=== PATIENT | female | born 1955 | race Caucasian/White ===

== ENCOUNTER 2023-10-23 04:17 | Inpatient (IN) | payer MEDICARE, OTHER, SELFPAY ==
[2023-10-22 22:31] VITALS: BP 108/75
[2023-10-22 22:51] LABS: % Basophils 0.6 % (0-2); % Eosinophils 2.3 % (0-6); % Immature Granulocytes 0.3 % (0-0.5); % Monocytes 8.2 % (1.7-9.3); % Neutrophils 56.6 % (42.2-75.2); Absolute Basophils 0.1 10^3/uL (0-0.2); Absolute Eosinophils 0.3 10^3/uL (0-0.7); Absolute Lymphocytes 3.5 10^3/uL (1.2-3.4); Absolute Monocytes 0.9 10^3/uL (0.1-0.6); Absolute Neutrophils 6.1 10^3/uL (1.4-6.5); Hematocrit 41.8 % (37.0-47.0); Hemoglobin 14.3 g/dL (12.0-16.0); Mean Corp Hgb Conc. 34.2 g/dL (33.0-37.0); Mean Corpuscular Hgb 31.1 pg (27.0-31.0); Mean Corpuscular Volume 90.9 fL (81.0-99.0); Mean Platelet Volume 9.9 fL (7.4-10.4); Nucleated Red Blood Cells % 0 %; Platelet Count 289 10^3/uL (130-400); Red Cell Dist. Width 14.2 % (11.5-14.5); White Blood Cell Count 10.8 10^3/uL (4.8-10.8)
[2023-10-22 23:09] LABS: ALT (SGPT) 24 U/L (0-35); AST (SGOT) 27 U/L (14-36); Albumin 4.6 g/dl (3.5-5.0); Alkaline Phosphatase 85 U/L (38-126); Blood Urea Nitrogen 26 mg/dl (7-17); Calcium 9.2 mg/dl (8.4-10.2); Carbon Dioxide 27 mmol/L (22-30); Chloride 103 mmol/L (98-107); Glucose 154 mg/dl (70-99); Magnesium 1.9 mg/dl (1.6-2.3); Potassium 4.3 mmol/L (3.5-5.1); Sodium 142 mmol/L (135-145); Total Bilirubin 0.8 mg/dl (0.2-1.3); Total Protein 7.4 g/dl (6.3-8.2); eGFR > 60.00
[2023-10-22 23:11] VITALS: BMI 49.4
[2023-10-22 23:12] VITALS: BP 123/100
--- NOTE | 2023-10-22 23:26 | ED.GENMED ---
History of Present Illness
General
Chief Complaint: Heart Rate Problem
Source: patient and spouse
Exam Limitations: none
Time Seen by Provider: 10/22/23 23:04
Nursing documentation reviewed up to this point in time: agreed with
History of Present Illness
History of Present Illness:
This is a 68-year-old woman who resides at home with her . She has history of paroxysmal atrial fibrillation with last episode occurring approximately 3 years ago. Chronically maintained on Eliquis as well as metoprolol tartrate. She had
been prescribed diltiazem 1 year ago but this was discontinued within a few months of starting due to complaints of generalized swelling.
She complains of intermittent palpitations that initially began yesterday. Similar palpitations with previous episodes of A-fib.
Tonight, palpitations recurred or just seemed more prominent/persistent and she used her heart rate monitor which demonstrated A-fib.
She denies chest pain nor dizziness nor lightheadedness. She does note mild dyspnea on exertion which is chronic and unchanged. She denies increased shortness of breath with onset of palpitations yesterday.
She denies alcohol use. She did share a Coke with her lisa, other than this denies caffeine use nor drug use.
No recent fever nor URI. No recent travel.
She follows with wood heel fitter machine, Dr. Schulz but admits that her 3 most recent office visits have been canceled by the wood heel fitter machine office, repeatedly rescheduled with next appointment scheduled for November.
She took her usual dose of metoprolol tonight around 10 PM as well as a dose of Eliquis.
She has been receiving samples of Eliquis from her PCP office and although is prescribed 5 mg twice a day, patient mitts that she has been breaking this in half and taking 2.5 mg twice daily.
Past History
Past History
ED Past Medical History: Arrthythmia (Paroxysmal atrial fibrillation), Cancer (Right breast cancer), Hypercholesterolemia, Hypothyroidism, Psychiatric and Other (vertigo, DJD of knees); Negative CAD
ED Past Surgical History: Gynecological (Right mastectomy) and Other (Partial thyroidectomy)
Social History
Tobacco: Non-smoker
Alcohol: None
Drug: None
Personal:
Living: with family
Employment: Retired
Family History
Family History: Other (Noncontributory)
Phy Exam
Physical Exam
Physical Exam:
GENERAL: 68-year-old obese woman appears her stated age, bright and alert, mildly anxious but easily communicative and otherwise in no acute distress.
EYE: pupils equal and reactive
NECK: Supple, no significant adenopathy.
ENT: o/p clr, mmm.
CARDIAC: Irregularly irregular, tachycardic
LUNGS: Clear breath sounds bilaterally, no acute respiratory distress,
ABDOMEN: Rotund, soft, without focal tenderness, no r/g, no cvat
NEUROLOGICAL: Alert and oriented, no focal neuro deficits
SKIN: Warm and dry, skin intact.
MUSCULOSKELETAL: No edema, well perfused.
PSYCH: Normal and appropriate interaction.
Course
Orders/Labs/Results
Orders:
Orders
10/22/23 22:35
ECG [Electrocardiogram (*1)] Urgent
Reason for Study: Tachycardia
10/22/23 22:36
EKG- Treatment ONCE
10/22/23 22:44
Complete Blood Count/With Diff Urgent
Comprehensive Metabolic Panel Urgent
Free T4 Urgent
Magnesium Urgent
TSH Reflex To Free T4 Urgent
10/22/23 23:24
0.9% Sodium Chloride 500 ml [Nss] 500 ml IV BOLUS
Diltiazem 125 mg/125 ml Nss [Cardizem] 125 mg in 125 ml IV NOW
Initial dose in mg/hr, then titrate:: 10
Titrate to keep:: Heart rate 80-100 bpm
Titrate by mg/hr:: 5 mg/hr
Frequency of titrations (minutes):: 15
Maximum dose in mg/hr:: 15
Diltiazem HCl [Cardizem] 20 mg IV NOW STA
Abnormal Lab Results
10/22/23
22:44
MCH 31.1 H pg
(27.0-31.0)
Absolute Lymphs (auto) 3.5 H 10^3/uL
(1.2-3.4)
Absolute Monos (auto) 0.9 H 10^3/uL
(0.1-0.6)
BUN 26 H mg/dl
(7-17)
Glucose 154 H mg/dl
(70-99)
TSH (Reflex) 9.80 H uIU/ml
(0.47-4.68)
10/22/23 22:44
10/22/23 22:44
Vital Signs
Initial and Last Documented VS:
Initial Vital Signs
Temp Pulse Resp BP Pulse Ox
98.3 F 109 20 108/75 96
10/22/23 22:31 10/22/23 22:31 10/22/23 22:31 10/22/23 22:31 10/22/23 22:31
Last Documented Vital Signs
Temp Pulse Resp BP Pulse Ox
98.3 F 106 24 123/79 93
10/22/23 22:31 10/23/23 00:15 10/23/23 00:15 10/23/23 00:00 10/23/23 00:15
MDM/Problems Addressed
Differential Diagnosis Includes:
Patient with history of PAF presents with A-fib with rapid ventricular response. Onset of palpitations yesterday, intermittent since then which may suggest intermittent A-fib versus persistent A-fib since yesterday with sporadic symptomatology.
She has history of hypothyroidism, maintained on Synthroid. Follows with Dr. June and believes her most recent thyroid function tests were early spring. Will recheck to assess for overcorrected versus under-corrected thyroid function.
Overall appears euvolemic. Blood pressure borderline soft in triage 108/75, it has improved to 130s systolic.
Will initiate IV fluids and plan for IV Cardizem for rate control.
If she develops hemodynamic instability/hypotension related to Cardizem will discontinue and plan for cardioversion.
*Pulse Oximetry
Patient hypoxic: no
*EKG
Interpreted by ED Provider?: Yes
Interpretation: abnormal
Comparison EKG: changes noted (PAF with RVR is new compared to previous EKG August 2019 showing normal sinus rhythm.)
Rate: tachycardiac
Rhythm: a-fib
[place]: normal axis
Interval: normal QT interval
QRS Pattern: normal QRS
Ischemia: non-specific ST changes
*Hot Iron Worker Interpretation
Rate: tachycardiac
Interpretation: abnormal
Rhythm: a-fib
*Critical Care Note
Total Time (30-74mins, 75-104mins- exclusive of procedures): 30
comment:
Critical care statement: A total of 30 minutes of critical care time was provided for this patient. This includes management of unstable vital signs, evaluation of the patient at bedside, reviewing the patient's pertinent medical records, discussion
with consultants, review of old EKGs and review of pertinent medical records. This time with separate from time utilized to perform the aforementioned documented procedures
Update Note
Update Note:
10/23/2023 02:40 AM
A-fib rate is better controlled with IV Cardizem titrated up to 15 but continues with mild tachycardia. Patient is much more comfortable. Borderline soft blood pressure but remains asymptomatic.
Labs are unremarkable save for mildly elevated BUN of 26 with normal creatinine 0.7. She has been given IV fluids.
Random glucose mildly elevated 154.
TSH mildly elevated at 9.8 with normal free T4 1.18.
Lengthy discussion regarding electrical cardioversion, IV propofol, potential risks and benefits. Patient remains markedly hesitant to undergo this procedure, concerns for propofol which she received during a colonoscopy procedure and was told that
she had stopped breathing at some point however no apparent complications and did well through that colonoscopy procedure.
We did discuss that this procedure is only momentary much shorter than a colonoscopy procedure but she remains hesitant to undergo this.
She will be difficult to rate control and discharged home due to borderline hypotension thus we will continue IV Cardizem, will admit to hospitalist service, continue to observe in hopes for spontaneous conversion versus may need cardiology
evaluation later this morning.
There is also concern that she has been taking half dose Eliquis and really requires 5 mg twice daily. She has been doing this due to prescriptions are cost prohibitive and she has been receiving samples from her PCP. She may require pharmacy/case
management consult regarding medication affordability.
ED Attending Note
-
Portions of this chart may have been created with voice recognition software.� Occasional wrong word or��sound alike� substitutions may have occurred due to the inherent limitations of voice recognition software.
Discharge Plan
Departure
Patient Disposition: Admit
Date of Disposition: 10/23/23
Time of Disposition: 02:59
Admit to: Telemetry
Admit to doctor: Dinesh
Presentation/result/management discussed w/ accepting MD/DO: Hospitalist
Condition: Fair
Discharge Problem:
PAF with RVR
Prescriptions:
No Action
levothyroxine 125 MCG tablet
250 mcg PO PERRY
levothyroxine 125 MCG tablet
125 mcg PO MOTUWETHFRSA
ezetimibe 10 MG tablet
10 mg PO DAILY
Vitamin D2 1.25 MG Tab
1.25 mg PO SUTH
metoprolol tartrate 25 mg Tablet
25 mg PO BID
Eliquis 2.5 mg Tablet
2.5 mg BID
Patient Comments:
pt is supposed to take 5mg bid but takes 5mg daily, cuts the pill in half
Referrals:
Ne Metz MD [Family Provider] -
Interventions
Interventions:
*Risk Screen - Suicide Last Done: 10/22/23 22:31
*General Assessment Last Done: 10/22/23 22:31
*Neglect/Abuse Screening Last Done: 10/22/23 22:31
ED- Cardiac Assessment Last Done: 10/22/23 23:30
ED- Pulmonary Assessment Last Done: 10/22/23 23:30
Discharge Date and Time
Print Language: NIGERIEN
[2023-10-22 23:32] VITALS: BP 127/93
[2023-10-22] MEDS: NSS 500 IV (23:33)
[2023-10-22] MEDS: CARDIZEM 125 IV (23:34)
[2023-10-22] MEDS: CARDIZEM 20 MG IV (23:35)
[2023-10-22 23:38] VITALS: BP 90/59
[2023-10-22 23:40] VITALS: BP 102/69
[2023-10-23] VITALS (18 sets, daily range): BP systolic 94–151; BP diastolic 58–107; BMI 49.3
[2023-10-23 00:09] LABS: Free T4 1.18 ng/dl (0.78-2.19)
--- NOTE | 2023-10-23 03:29 | HPS.HSE ---
Family Physician
-
Family Physician: Ne Metz
Chief Complaint
-
Palpitations
History of Present Illness
Patient is a 68y F with PMH significant for hypothyroidism, breast cancer and obesity who presents to ED complaining of palpitations. Patient states that she was feeling somewhat weak and fatigued yesterday evening. This evening she went out to
the movies and had some soda and popcorn - which is atypical for her. Upon returning home, she noted palpitations / racing heartbeat. She checked her rhythm on a home monitor that she has and it indicated that she was in A-Fib. Pateint monitored
her symptoms for about one hour and - when they did not improve - she presented to the ED for further evaluation.
Patient has prior h/o paroxysmal A-Fib - noting that she had a single episode about 3 years ago. She is followed by Dr. Steven at [facility].
Patient states that she has been taking Eliquis 2.5mg BID instead of 5mg dose for financial reasons.
She stopped taking her diltiazem some time ago as it caused ankle swelling. She remains on metoprolol.
Patient notes that she has had no recurrence of palpitations / A-Fib in the past few years.
In the ED, patient is resting comfortably - she is somewhat anxious.
She denies any chest pain, dyspnea, N/V, etc.
Medical History
Past Medical History
Past Medical History: Reports Other
Additional Past Medical History:
Paroxysmal Atrial Fibrillation
Breast Cancer / Recurrence
Thyroid Nodule
Hypothyroidism
IBS
Morbid Obesity
DJD
Past Surgical History: Reports Other
Additional Past Surgical History:
Right Lumpectomy
Right Mastectomy
Partial Thyroidectomy
Social History
Tobacco: Former Smoker (Quit smoking in 1998. Approx 20 pack years total use.)
Alcohol: Occasional (Rare.)
Drug: None
Personal:
Living: With Family
Family History
Family History: Not pertinent
Allergies / Home Medications
Allergies reflects when Allergies were last updated in [facility].
Home Medications with original date entered in [facility]
Allergy/Medication List:
Allergies
Allergy/AdvReac Type Severity Reaction Status Date / Time
Penicillins Allergy Severe Throat Verified 10/22/23 22:31
Swelling
latex Allergy Itching Verified 10/22/23 22:31
and rash
Home Medications
Vitamin D2 1.25 mg PO SUTH 09/27/19
ezetimibe 10 mg tablet 10 mg PO DAILY 09/27/19
levothyroxine 125 mcg tablet 125 mcg PO MOTUWETHFRSA 09/27/19
levothyroxine 125 mcg tablet 250 mcg PO PERRY 09/27/19
apixaban 2.5 mg tablet (Eliquis) 2.5 mg BID 10/22/23
metoprolol tartrate 25 mg tablet 25 mg PO BID 10/22/23
Review of Systems
-
History Source: Patient
A 12 point ROS was completed and negative except as noted: Yes
Constitutional: Reports Fatigue; Denies Fever or Chills
EENT: Denies Sore Throat
Respiratory: Denies Cough or Trouble Breathing
Cardiac: Reports Palpitations; Denies Chest Pain, Diaphoresis or Syncope
Abdomen/GI: Reports Diarrhea; Denies Abdominal Pain, Nausea or Vomiting
: Denies Dysuria, Frequency or Flank Pain
Musculoskeletal: Reports Joint Pain (chronic knee pain.)
Skin: Reports Itching and Rash
Neurological: Denies Dizzy or Headache
Psych: Reports Anxiety; Denies Depression
Physical Exam
Vital Signs
Vital Signs
Temp Pulse Resp BP Pulse Ox
98.3 F 106 24 123/79 93
10/22/23 22:31 10/23/23 00:15 10/23/23 00:15 10/23/23 00:00 10/23/23 00:15
Physical Exam
General: Other (68y anxious female with flushed facies.)
HEENT: Other (Thick neck.)
Respiratory: Clear; No Wheezes, Rales or Rhonchi
Cardiac: S1/S2 and Irregular Rhythm; No Murmur
Breast: Other (Circular erythematous lesions R ACW / mastectomy site.)
GI: Non Tender, Non Distended, Normal Bowel Sounds and Other (Obese)
Musculoskeletal: No Clubbing, No Cyanosis and Other (Trace pedal edema.)
Neuro: AO x 3
Laboratory Results
-
10/22/23 22:44
10/22/23 22:44
Laboratory Results
Total Bilirubin 0.8 mg/dl (0.2-1.3) 10/22/23 22:44
AST 27 U/L (14-36) 10/22/23 22:44
ALT 24 U/L (0-35) 10/22/23 22:44
Alkaline Phosphatase 85 U/L (38-126) 10/22/23 22:44
Impression/Plan
-
A/P: Patient is a 68y F with PMH significant for PA-Fib, breast cancer and obesity who presents to ED complaining of palpitations.
Paroxysmal Atrial Fibrillation with Rapid Ventricular Rate
- Admit for further evaluation and treatment.
- DCCV reviewed in the ED but patient not interested at this time.
- Continue IV diltiazem and monitor on telemetry overnight.
- Resume usual dose of Eliquis. Case Management eval to investigate insurance coverage / options.
- Cardiology evaluation in the AM for further recommendations - patient followed by Dr. Steven of [facility].
- Follow for any new / worsening symptoms.
Tinea Corporis R ACW
- Fungal appearing rash on the R chest that patient states has been present for the past 3 weeks or so.
- Topical antifungal therapy and follow for improvement.
- Would avoid prosthetic use until this is resolved.
Hypothyroidism
- s/p prior partial thyroidectomy
- TFTs done this evening would suggest some degree of under-replacement.
- Given A-Fib / tachycardia, would not increase T4 supplementation at this time.
- Follow-up as an outpatient.
Morbid Obesity due to excess calories
- Affects all aspects of care.
- Patient reports prior issue during colonoscopy with apnea under sedation.
- Would likely benefit from formal PSG / possible PAP therapy as an outpatient.
- Encourage healthy diet and increased activity with goal of weight loss.
DVT Prophylaxis: On Eliquis
Code Status: Full
[2023-10-23] MEDS: SYNTHROID 125 MCG PO (06:03)
[2023-10-23 06:56] LABS: Hematocrit 38.5 % (37.0-47.0); Hemoglobin 13.4 g/dL (12.0-16.0); Mean Corp Hgb Conc. 34.8 g/dL (33.0-37.0); Mean Corpuscular Hgb 30.2 pg (27.0-31.0); Mean Corpuscular Volume 86.7 fL (81.0-99.0); Mean Platelet Volume 9.9 fL (7.4-10.4); Platelet Count 282 10^3/uL (130-400); Red Blood Cell Count 4.44 10^6/uL (4.20-5.40); White Blood Cell Count 8.1 10^3/uL (4.8-10.8)
[2023-10-23 07:08] LABS: Troponin I < 0.012 ng/ml
[2023-10-23 07:38] LABS: Blood Urea Nitrogen 18 mg/dl (7-17); Calcium 8.7 mg/dl (8.4-10.2); Carbon Dioxide 21 mmol/L (22-30); Chloride 108 mmol/L (98-107); Estimated Creatinine Clearance 101 ml/min; Glucose 141 mg/dl (70-99); HDL Cholesterol 34 mg/dl; LDL Cholesterol, Calculated 146 mg/dl; Potassium 4.3 mmol/L (3.5-5.1); Sodium 142 mmol/L (135-145); Total Cholesterol 223 mg/dl (50-199); Triglyceride 219 mg/dl (10-149); Very Low Density Lipoprotein 43 mg/dl (0-30); eGFR > 60.00
[2023-10-23] MEDS: CARDIZEM 125 IV (07:53)
[2023-10-23] MEDS: LOPRESSOR 25 MG PO (08:47)
[2023-10-23] MEDS: ZETIA 10 MG PO (08:47)
[2023-10-23] MEDS: LOTRISONE CREAM 1 APPLIC TOPICAL ×2 (08:52→20:30)
[2023-10-23] MEDS: ELIQUIS 5 MG PO ×2 (08:52→20:30)
--- NOTE | 2023-10-23 10:00 | W.PN.HOSP.TC ---
Addendum entered and electronically signed by Matias Rodirguez MD 10/23/23 14:16:
seen and examined. with resident phsyician. agree with below. unable to bill for this note as hnp was comlpeted after 12am
Original Note:
Today's Communication/Plan
-
Cardiology eval
PT/OT eval
CM consult for med affordability
Assessment / Plan
Assessment / Plan
A/P: Patient is a 68y F with PMH significant for PA-Fib, breast cancer and obesity who presents to ED complaining of palpitations.
Paroxysmal Atrial Fibrillation with Rapid Ventricular Rate
- Pt admitted to IVU for cardiac monitoring
- Continue IV diltiazem and monitor on telemetry.
- Resume usual dose of Eliquis. Case Management eval to investigate insurance coverage / options.
- Cardiology evaluation for further recommendations - patient followed by Dr. Steven of [facility]
- Follow for any new / worsening symptoms.
-CM consulted to help with Eliquis affordability
Tinea Corporis R ACW
- Fungal appearing rash on the R chest that patient states has been present for the past 3 weeks or so.
- Topical antifungal therapy and follow for improvement.
- avoid prosthetic use until this is resolved.
Hypothyroidism
- s/p prior partial thyroidectomy
- TFTs done this evening would suggest some degree of under-replacement.
- Given A-Fib / tachycardia, would not increase T4 supplementation at this time.
- Thyroid function tests ordered as add on, Will F/U as outpatient
Morbid Obesity due to excess calories
- Affects all aspects of care.
- Patient reports prior issue during colonoscopy with apnea under sedation.
-Patient planning on bringing home CPAP machine for use at night
- Would likely benefit from formal PSG / possible PAP therapy as an outpatient.
- Encourage healthy diet and increased activity with goal of weight loss.
- Pt started on cholesterol lowering diet
-Pt/OT consulted
DVT Prophylaxis: On Eliquis
Diet: cholesterol lowering
Code Status: Full
Anticipated Discharge: 24 - 48 hours
Subjective/Interval History
-
Date of Service: October 23, 2023
pt currently in afib this morning
Objective Data
-
Labs:
Laboratory Results
10/22/23 10/23/23
22:44 06:33
WBC 10.8 8.1
Hgb 14.3 13.4
Hct 41.8 38.5
Plt Count 289 282
Sodium 142 142
Potassium 4.3 4.3
Chloride 103 108 H
Carbon Dioxide 27 21 L
BUN 26 H 18 H
Creatinine 0.7 0.6
Glucose 154 H 141 H
Calcium 9.2 8.7
Total Bilirubin 0.8
AST 27
ALT 24
Alkaline Phosphatase 85
Vital Signs:
Vital Signs
Temp Pulse Resp BP Pulse Ox
97.9 F 100 16 151/58 94
10/23/23 05:43 10/23/23 05:00 10/23/23 05:43 10/23/23 05:00 10/23/23 05:48
I&O
10/22/23 10/23/23 10/24/23
06:59 06:59 06:59
Output Total 900 / 900
Balance -900 / -900
Review of Systems
-
History Source: Patient
Constitutional: Reports No Symptoms
Respiratory: Reports No Symptoms
Cardiac: Reports Chest Pain and Palpitations
Abdomen/GI: Reports No Symptoms
Musculoskeletal: Reports Joint Pain
Neuro: Reports No Symptoms
Psych: Reports Anxious
Physical Exam
-
General: Well Developed, Well Nourished, No Apparent Distress, Comfortable and Morbidly Obese
Respiratory: Clear to Auscultation
Cardiac: S1/S2, Irregular Rhythm and Tachycardic
GI: Soft, Nontender and Nondistended; Negative Normal Bowel Sounds
Skin: Warm and Dry
Neuro: Awake, Alert, Oriented and AO x 3
Psych: Intact Judgement/Insight; Negative Anxious
Data Reviewed
-
Labs: Labs Reviewed by me and Discussed with Physician
[2023-10-23 11:08] LABS: Hepatitis C Antibody Negative (Negative)
--- NOTE | 2023-10-23 11:19 | CON.CAR ---
Addendum entered and electronically signed by Bg Win MD 10/23/23 15:34:
68 yo female with PMH of paroxysmal A fib, morbid obesity admitted with A fib with RVR. Caffeine may have been trigger. She is now back in NSR on diltiazem drip. Exam with RRR, no murmurs, trace edema. Tele: A FIB-->NSR.
Stop diltiazem drip. Increase metoprolol to 50mg bid.
She was not taking eliquis as directed due to cost: case mgmt consult for assistance.
Echo.
Original Note:
Consultation
Consultation Request
Date/Time Consultation Requested: 10/23/23529
Date/Time Consultation Performed: 10/23/23 1045
Requesting Provider: Dr. Montiel
Performing Provider: Kendal HAYS for Dr. Win
Reason for Consultation: AFIB
Medical History
-
Chief Complaint: palpitations
History of Present Illness:
68 y/o female with severe obesity, hypothyroidism (and hx partial thyroidectomy), breast cancer with hx mastectomy and radiation, PAF on Eliquis, dyslipidemia (statin intolerant), ROB on CPAP, and orthopedic knee issues (gets shots) who is here for
evaluation of palpitations that started last night. In ER, she was seen to be in AFIB with RVR. She is currently on a diltiazem drip and remains in AFIB with controlled rates.
Past Medical History
Past Medical History: Arrhythmias, Cancer and Hypercholesterolemia
Social History
Tobacco: Former Smoker
Alcohol: Occasional
Personal:
Living: With Family
Employment: Employed
Family History
Family History: Other (mom, dad, and brother with heart problems, but details unknown. Mom and dad at advanced ages.)
Allergies / Home Medications
Allergy/AdvReac Type Severity Reaction Status Date / Time
Penicillins Allergy Severe Throat Verified 10/22/23 22:31
Swelling
latex Allergy Itching Verified 10/22/23 22:31
and rash
�Medication �Instructions �Recorded �Confirmed �Type
Vitamin D2 1.25 mg PO SUTH 09/27/19 10/22/23 History
ezetimibe 10 mg tablet 10 mg PO DAILY 09/27/19 10/22/23 History
levothyroxine 125 mcg tablet 125 mcg PO MOTUWETHFRSA 09/27/19 10/22/23 History
levothyroxine 125 mcg tablet 250 mcg PO PERRY 09/27/19 10/22/23 History
apixaban 2.5 mg tablet (Eliquis) 2.5 mg BID 10/22/23 10/22/23 History
metoprolol tartrate 25 mg tablet 25 mg PO BID 10/22/23 10/22/23 History
Review of Systems
-
History Source: Patient
All other systems: Negative unless noted
Cardiac: Palpitations
Physical Exam
Vital Signs
Temp Pulse Resp BP Pulse Ox
97.9 F 87 16 144/96 94
10/23/23 05:43 10/23/23 10:32 10/23/23 05:43 10/23/23 10:32 10/23/23 05:48
Lab Results
10/23/23 06:33
10/23/23 06:33
Troponin I < 0.012 ng/ml 10/23/23 06:33
Physical Exam
General: Well Developed and No Apparent Distress
HEENT: Normocephalic and Anicteric
Respiratory: Clear and Non Labored Respirations
Cardiac: Irregular Rhythm
Skin: Warm and Dry
Neuro: AO x 3
Psych: Calm
Impression / Plan
-
AFIB:
-has been paroxysmal in the past
-currently rate-controlled on IV diltiazem- continue for now- this requires intensive monitoring. Of note, PO diltiazem has caused LE edema in the past. Continue metoprolol. Does not feel palps as much now that rate is controlled
-On Eliquis as OP, but due to cost has been taking half dose- We discussed that taking the appropriate dose of OAC is important. CM consulted to look into pricing. [id number] score is 2 for age and female.
-we discussed risk factor modification including weight loss and aerobic exercise. She does not drink ETOH regularly and uses her CPAP.
-Echo pending
-TSH elevated, free T4 is normal- management per primary
-will discuss rhythm/rate management plan with Dr. Win. Patient has concerns about anesthesia (which is used for MAYLIN and/or CV).
HLD:
-statin intolerant
-on Zetia
-follow-up with OP salsa dance instructor/PCP on this
ROB:
-continue CPAP
-she is very compliant
Obesity, severe:
-she would benefit from weight loss, which we discussed
Data Reviewed
-
EKG: Tracing Personally Visualized and interpreted (AFIB with RVR)
Medical Tests (Nuc Med, Echo etc): Other (echo ordered)
Labs: Labs Reviewed by me
[2023-10-23 11:37] LABS: Glucose - Point of Care 125 mg/dl (70-99)
--- NOTE | 2023-10-23 11:46 | CM ---
Chart reviewed. Patient is independent of ADLS, lives with her in [address] [facility], ambulates with a RW and a SPC. Plan is for the patient to return home. CM to follow
--- NOTE | 2023-10-23 11:48 | CM ---
Addendum entered by Carlene Harper RN 10/23/23 15:03:
Dabigastran is $57 through [facility]
Addendum entered by Carlene Harper RN 10/23/23 13:16:
Pricing on Xarelto 20 mg daily is $520 for the first month and then $130, will need a prior authorization.
Pradaxa 150mg BID is $543 for the first month and then $271, will need a prior authorization
Dabigastran (generic of Pradaxa) is $154 for the first month and then $77 a month, will need a prior authorization
Original Note:
Pricing on Eliquis through the patient's [facility] is $282 for the first month (includes deductible) then it will cost $203 a month. Patients is on multiple medications that are costly. Patient explained that she can't afford
[employer]. I printed out the [employer] form for her to complete and call in to see if she qualifies. Patient is waiting for her to provide her with their gross income to call [employer]. I did place a free 30 day coupon in her
red discharge folder. CM to follow
[2023-10-23 12:42] LABS: TSH Reflex To Free T4 8.87 uIU/ml (0.47-4.68)
[2023-10-23 14:10] LABS: Troponin I < 0.012 ng/ml
--- NOTE | 2023-10-23 14:56 | CARDSERVLU ---
Echocardiogram with Lumason completed after protocol screening completed. Allergies verified.
Patent IV site: _Left accessory 20 G PC site clear____
IV site flushed with 0.9% NaCl pre and post administration.
Diluted bolus method utilized to enhance visualization of ventricular longoria.
Total volume given: __4__ mL
Patient tolerated all procedures well without complications.
[2023-10-23] MEDS: TOPROL XL 25 MG PO (15:54)
--- NOTE | 2023-10-23 16:58 | PTCARENOTE ---
Assumed care of Pt at 1515, A<A+O x3, no complaints, VSS. Pt on Cardizem drip at 15mg/hr
[2023-10-23 19:48] LABS: Troponin I < 0.012 ng/ml
[2023-10-23] MEDS: TOPROL XL 50 MG PO (20:30)
[2023-10-24] VITALS (14 sets, daily range): BP systolic 82–147; BP diastolic 58–98; PULSE 68–81; O2SAT 97; BMI 49.1
--- NOTE | 2023-10-24 00:47 | PTCARENOTE ---
received patient at the change of shift. AAOx3. at the bedside. SR on tele 60s-70s. bp stable. denies any lightheadedness/dizziness. reviewed medications with patient-importance of Eliquis. answered all questions. oob with the walker
independently. b/l knee pain-arthritic per patient. call singh within reach. calls appropriately.
[2023-10-24 05:16] LABS: % Basophils 0.7 % (0-2); % Eosinophils 2.9 % (0-6); % Immature Granulocytes 0.4 % (0-0.5); % Lymphocytes 31.3 % (20.5-51.1); % Monocytes 7.8 % (1.7-9.3); % Neutrophils 56.9 % (42.2-75.2); Absolute Basophils 0.1 10^3/uL (0-0.2); Absolute Eosinophils 0.2 10^3/uL (0-0.7); Absolute Lymphocytes 2.6 10^3/uL (1.2-3.4); Absolute Monocytes 0.6 10^3/uL (0.1-0.6); Absolute Neutrophils 4.7 10^3/uL (1.4-6.5); Hematocrit 37.6 % (37.0-47.0); Hemoglobin 12.6 g/dL (12.0-16.0); Mean Corp Hgb Conc. 33.5 g/dL (33.0-37.0); Mean Corpuscular Hgb 30.4 pg (27.0-31.0); Mean Corpuscular Volume 90.6 fL (81.0-99.0); Mean Platelet Volume 9.8 fL (7.4-10.4); Nucleated Red Blood Cells % 0 %; Platelet Count 248 10^3/uL (130-400); Red Blood Cell Count 4.15 10^6/uL (4.20-5.40); Red Cell Dist. Width 14.4 % (11.5-14.5); White Blood Cell Count 8.2 10^3/uL (4.8-10.8)
[2023-10-24 05:37] LABS: ALT (SGPT) 21 U/L (0-35); AST (SGOT) 21 U/L (14-36); Albumin 3.9 g/dl (3.5-5.0); Alkaline Phosphatase 73 U/L (38-126); Blood Urea Nitrogen 25 mg/dl (7-17); Calcium 9.3 mg/dl (8.4-10.2); Carbon Dioxide 25 mmol/L (22-30); Chloride 106 mmol/L (98-107); Estimated Creatinine Clearance 86 ml/min; Glucose 126 mg/dl (70-99); Potassium 4.2 mmol/L (3.5-5.1); Sodium 140 mmol/L (135-145); Total Protein 6.5 g/dl (6.3-8.2); eGFR > 60.00
[2023-10-24] MEDS: SYNTHROID 125 MCG PO (08:21)
--- NOTE | 2023-10-24 08:34 | W.PN.HOSP.TC ---
Addendum entered and electronically signed by Matias Rodriguez MD 10/24/23 13:42:
Plan to discharge home on 37.5 mg of metoprolol per cardiology recommendation initially recommended 50 mg twice daily however this was causing her dizziness therefore we will scale back.
Will need continued outpatient cardiology follow-up
Eliquis assistance paperwork filled out by cardiology
Coupon for Eliquis provided by case management.
Plan to discharge at this time.
Original Note:
Today's Communication/Plan
-
Decrease metoprolol dose 37.5 mg twice daily p.o.
Discharge patient home
Assessment / Plan
Assessment / Plan
A/P: Patient is a 68y F with PMH significant for PA-Fib, breast cancer and obesity who presents to ED complaining of palpitations.
Paroxysmal Atrial Fibrillation with Rapid Ventricular Rate
- Pt admitted to IVU for cardiac monitoring
-Patient spontaneously converted out of A-fib yesterday, current heart rate is in the 60s
- Diltiazem drip was discontinued
-Cardiology started patient on increased dose of metoprolol, 50 twice daily p.o.
-Patient was having episodes of lightheadedness at rest and with ambulation
-Conversation was had with Dr. Win regarding reduction of her metoprolol dose
-It was decided to reduce her dose to 37.5 mg twice daily p.o.
- Resume usual dose of Eliquis. Case Management eval to investigate insurance coverage / options.
- Cardiology evaluation for further recommendations - patient followed by Dr. Steven of [facility]
-Patient would like to follow-up with her snow fence erector in [place], however will give referral to Dr. Win in case patient decides she would like to switch
- Follow for any new / worsening symptoms.
-CM consulted to help with Eliquis affordability
-Patient was having episode of hypotension and dizziness with ambulating, pressures were soft 500 cc saline bolus was ordered
Tinea Corporis R ACW
- Fungal appearing rash on the R chest that patient states has been present for the past 3 weeks or so.
- Topical antifungal therapy and follow for improvement.
- avoid prosthetic use until this is resolved.
Hypothyroidism
- s/p prior partial thyroidectomy
-TFTs are elevated, demonstrating patient is not on adequate dose of levothyroxine
-Were previously holding increased dose due to patient being in A-fib
-As patient has spontaneously converted we will consider increasing levothyroxine dose
-Patient will follow-up as an outpatient regarding levothyroxine management
Morbid Obesity due to excess calories
- Affects all aspects of care.
- Patient reports prior issue during colonoscopy with apnea under sedation.
-Patient used home CPAP machine overnight with no issues
- Would likely benefit from formal PSG / possible PAP therapy as an outpatient.
- Encourage healthy diet and increased activity with goal of weight loss.
-started on cholesterol lowering diet
-Pt evaluated the patient and will continue to assess mobility. Patient mentions needing a new walker as she uses her 's
-OT eval
-Patient was given prescription for rolling walker
DVT Prophylaxis: On Eliquis
Diet: cholesterol lowering
Code Status: Full
Anticipated Discharge: Within 24 hours
Subjective/Interval History
-
Date of Service: October 24, 2023
Patient spontaneously converted into normal sinus rhythm
Heart rate was in the low 60s during exam
Patient anxiety still high, this seems to be her baseline
Objective Data
-
Labs:
Laboratory Results
10/24/23
04:27
WBC 8.2
Hgb 12.6
Hct 37.6
Plt Count 248
Sodium 140
Potassium 4.2
Chloride 106
Carbon Dioxide 25
BUN 25 H
Creatinine 0.7
Glucose 126 H
Calcium 9.3
Total Bilirubin 1.0
AST 21
ALT 21
Alkaline Phosphatase 73
Vital Signs:
Vital Signs
Temp Pulse Resp BP Pulse Ox
97.1 F 53 16 135/83 97
10/24/23 07:00 10/24/23 07:04 10/24/23 07:00 10/24/23 07:04 10/24/23 07:00
I&O
10/23/23 10/24/23 10/25/23
06:59 06:59 06:59
Intake Total 400 / 400
Output Total 900 / 900
Balance -900 / -900 400 / 400
Review of Systems
-
History Source: Patient
Constitutional: Reports No Symptoms
Respiratory: Reports No Symptoms
Cardiac: Reports No Symptoms
Physical Exam
-
General: Well Developed, Well Nourished, No Apparent Distress, Comfortable and Morbidly Obese
Respiratory: Clear to Auscultation
Cardiac: Regular Rhythm and S1/S2
GI: Soft, Nontender, Nondistended and Normal Bowel Sounds
Skin: Warm and Dry
Neuro: Awake, Alert, Oriented and AO x 3
Psych: Intact Judgement/Insight and Anxious
Data Reviewed
-
Medical Tests (Nuc Med, Echo etc): Report Reviewed by me and Discussed with Physician
Labs: Labs Reviewed by me and Discussed with Physician
--- NOTE | 2023-10-24 08:49 | W.PN.CD ---
Today's Communication / Plan
-
cont Toprol XL 50mg bid and eliquis 5mg bid
discharge planning
please call us with additional questions
Impression / Plan
-
paroxysmal A fib: recurrence with Afib with RVR
-now back in sinus after diltiazem drip
-echo this admission is normal
-she noted edema with PO diltiazem in past
-doing well with increased Toprol XL 50mg bid
-cont eliquis 5mg bid
-I helped her fill out assistance forms for pricing
-pradaxa would be an option (150mg bid) if eliquis remains unaffordable (I provided written script for this as well)
HLD:
-statin intolerant
-on Zetia
-follow-up with OP biomedical analytical scientist/PCP on this
ROB:
-continue CPAP
-she is very compliant
Obesity, morbid:
-she would benefit from weight loss, which we discussed
Physical Exam
Vital Signs/Labs
Vital Signs
Temp Pulse Resp BP Pulse Ox
97.1 F 53 16 135/83 97
10/24/23 07:00 10/24/23 07:04 10/24/23 07:00 10/24/23 07:04 10/24/23 07:00
10/23/23 10/24/23 10/25/23
06:59 06:59 06:59
Actual Weight 114.5 kg 114.1 kg
10/24/23 04:27
10/24/23 04:27
Magnesium 1.9 mg/dl (1.6-2.3) 10/22/23 22:44
Triglycerides 219 mg/dl (10-149) H 10/23/23 06:33
LDL Cholesterol, Calc 146 mg/dl 10/23/23 06:33
VLDL Cholesterol, Calc 43 mg/dl (0-30) H 10/23/23 06:33
HDL Cholesterol 34 mg/dl 10/23/23 06:33
Free T4 1.18 ng/dl (0.78-2.19) 10/22/23 22:44
LAB Results
10/23/23 10/23/23 10/23/23
06:33 13:31 19:16
Troponin I < 0.012 < 0.012 < 0.012
Physical Exam
Constitutional: No acute distress and Comfortable
EENT: Moist mucous membranes
Cardiovascular: Rhythm & rate is regular, Pedal edema is absent, JVD pressure is normal and Systolic murmur absent
Respiratory: Respiratory effort normal and Lungs clear to auscul.
GI: Soft and Distention absent
Neuro/Psych: AO x 3
Data Reviewed
-
Date of Service: October 24, 2023
EKG: Other (Tele: NSR)
Echo: Report Reviewed by me
Labs: Labs Reviewed by me
Total Time Spent with Patient (in minutes): 50 min: including answering all questions, filling out eliquis assistance
[2023-10-24] MEDS: ZETIA 10 MG PO (09:27)
[2023-10-24] MEDS: TOPROL XL 50 MG PO (09:28)
[2023-10-24] MEDS: ELIQUIS 5 MG PO (09:28)
[2023-10-24] MEDS: LOTRISONE CREAM 1 APPLIC TOPICAL (09:28)
--- NOTE | 2023-10-24 09:28 | PTCARENOTE ---
Pt's skin beneath monitor electrode patches red and 'itchy'. All patches removed and paper hypoallergenic electrode stickers applied.
--- NOTE | 2023-10-24 11:33 | PTCARENOTE ---
Pt c/o feeling lightheaded, while sitting OOB in chair, BP 82/58. Pt assisted back to bed, BP 93/57, then after a few minutes of lying down- 134/78. She also reports having an episode of diarrhea, liquid perea stool in BR prior to having VS checked.
Dr. Do and Dr Rodriguez aware. IV bolus ordered.
[2023-10-24] MEDS: NSS 500 IV (11:45)
--- NOTE | 2023-10-24 12:00 | CM ---
Chart reviewed. Patient is independent of ADLS, lives with her in a [address], [facility], ambulates with a RW and SPC. PT gave patient a script for a RW, that she will need before discharge. I faxed over the applications for financial assitance
with [employer]. Patient has both Eliquis and Dabigastran scripts, along with the free 30 day coupon. Plan is for the patient to return home. CM to follow
--- NOTE | 2023-10-24 13:23 | W.DCSUMMARY ---
Discharge Summary
Discharge Data
Date of Admission: 10/23/23
Date of Discharge: 10/24/23
-
Pending Results: No
Hospital Course
Discharging Physician : Michael Guevara
Disposition : Home
Primary care physician : Dr. Ne Metz
Principal Discharge diagnosis : Atrial fibrillation with rapid ventricular rate
Chronic Discharge diagnosis : Hypothyroidism, hyperlipidemia breast cancer, obesity, paroxysmal A-fib with RVR, tinea corporis, morbid obesity
Hospital Course : 68-year-old female presented to outside emergency department complaining of palpitations. Patient has a past medical history of paroxysmal atrial fibrillation, currently on Eliquis. Patient cannot afford full dose of Eliquis at 5
mg twice daily. So patient takes 2.5 mg p.o. twice daily. EKG in ED demonstrated atrial fibrillation with rapid ventricular rate. Patient was admitted to IVU for cardiac monitoring and for further workup and management. Patient was placed on IV
diltiazem drip and 1 day after her admission her A-fib with RVR spontaneously converted into sinus rhythm. Cardiology was consulted for further recommendations. Cardiology discontinued the diltiazem drip and started the patient on 50 mg p.o.
metoprolol succinate. During physical therapy patient noted to be dizzy during ambulation as well as during rest. Conversation was had with cardiology to reduce her dose of metoprolol to 37.5 mg p.o. twice daily. Case management was consulted to
help the patient afford her full dose Eliquis. Patient was given resources to afford her medication. If she cannot afford Eliquis Dr. Tineo wrote a prescription for Peridex 150 mg twice daily. Physical therapy evaluated the patient and she was
given a prescription for a rolling walker. Tentatively patient will follow-up with her cardiology CCP in [place]. However if she cannot get an appointment she will follow-up with Dr. Roberson at [place] [facility]. Referral has been placed if
needed. It was noted that patient's TSH was elevated. Dose of levothyroxine was increased from 100 to 125 mg p.o. It was also noted that the patient had a fungal rash on her chest, patient was given antifungal cream and was prescribed a dose to
use at home. Patient will follow-up with her primary care physician within 1 week to discuss further management of fungal infection and hypothyroidism. Patient will be discharged home.
Important imaging findings : No imaging performed
Procedure findings : No procedures performed
Discharge Plan
-
Patient Disposition: Home (Routine Discharge)
Discharge Diagnosis/Procedures: Atrial fibrillation with rapid ventricular rate
Condition: Good
Diet: Low Fat and Low Cholesterol
Activity: As tolerated
Driving Restrictions: As prior to admission
Bathing Restrictions: None
Activity Restrictions/Additional Instructions:
Please follow-up with your primary care physician within 1 week of discharge for hypothyroidism and fungal infection management
Please follow-up with your prosthetics lab technician at [facility]. If not possible to get appointment please follow-up with Dr. Win at [facility] on cardiology. Referral has been placed tentatively if needed.
Hospital Course : 68-year-old female presented to outside emergency department complaining of palpitations. Patient has a past medical history of paroxysmal atrial fibrillation, currently on Eliquis. Patient cannot afford full dose of Eliquis at 5
mg twice daily. So patient takes 2.5 mg p.o. twice daily. EKG in ED demonstrated atrial fibrillation with rapid ventricular rate. Patient was admitted to IVU for cardiac monitoring and for further workup and management. Patient was placed on IV
diltiazem drip and 1 day after her admission her A-fib with RVR spontaneously converted into sinus rhythm. Cardiology was consulted for further recommendations. Cardiology discontinued the diltiazem drip and started the patient on 50 mg p.o.
metoprolol succinate. During physical therapy patient noted to be dizzy during ambulation as well as during rest. Conversation was had with cardiology to reduce her dose of metoprolol to 37.5 mg p.o. twice daily. Case management was consulted to
help the patient afford her full dose Eliquis. Patient was given resources to afford her medication. If she cannot afford Eliquis Dr. Tineo wrote a prescription for Peridex 150 mg twice daily. Physical therapy evaluated the patient and she was
given a prescription for a rolling walker. Tentatively patient will follow-up with her cardiology CCP in [place]. However if she cannot get an appointment she will follow-up with Dr. Roberson at [place] [facility]. Referral has been placed if
needed. It was noted that patient's TSH was elevated. Dose of levothyroxine was increased from 100 to 125 mg p.o. It was also noted that the patient had a fungal rash on her chest, patient was given antifungal cream and was prescribed a dose to
use at home. Patient will follow-up with her primary care physician within 1 week to discuss further management of fungal infection and hypothyroidism. Patient will be discharged home.
Referrals:
Bg Win MD [Active] - in two to four weeks
Ne Metz MD [Family Provider] - in less than 1 week
Additional Discharge Medication Instructions: Continue applying topical clotrimazole�betamethasone twice a day until fungal rash has resolved
Continue Eliquis 5 mg twice a day by mouth
Continue taking metoprolol succinate 37.5 mg twice a day by mouth. Do this by taking one 25 mg and 12.5 mg tablet by mouth twice a day
Prescriptions:
New
Eliquis 2.5 mg Tablet
5 mg PO BID Qty: 60 0RF
clotrimazole-betamethasone 1-0.05 % Cream
1 applic topical BID Qty: 15 0RF
metoprolol succinate 25 mg Tablet Extended Release 24 Hr
12.5 mg PO BID Qty: 60 0RF
Continued
levothyroxine 125 MCG tablet
250 mcg PO PERRY
levothyroxine 125 MCG tablet
125 mcg PO MOTUWETHFRSA
ezetimibe 10 MG tablet
10 mg PO DAILY
Vitamin D2 1.25 MG Tab
1.25 mg PO SUTH
metoprolol tartrate 25 mg Tablet
25 mg PO BID
Discontinued
Eliquis 2.5 mg Tablet
2.5 mg BID
Patient Comments:
pt is supposed to take 5mg bid but takes 5mg daily, cuts the pill in half
Discharge Orders:
Discharge Patient (As Directed); Ordered 10/24/23
Ordered By: Norman Guevara
Care Plan Goals
Care Plan Goals:
Problem: Readiness for enhanced knowledge related to diagnosis and treatment plan
Goal: Understand your diagnosis and treatment plan needs, including medications if applicable.
Instructions: Know your diagnosis, underlying causes and treatment plan options, including medications if applicable. Consult with your health care team to learn about your diagnosis and treatment plan, including medications if applicable.
Discharge Date and Time
Print Language: UKRAINIAN
--- NOTE | 2023-10-24 15:23 | PTCARENOTE ---
Pt had short run of a-fib, lasting 6-7 sec at rate of 150-160. Pt felt some brief fluttering. Dr Rodriguez aware, EKG obtained. Patient worked with PT, practiced steps, calvin well.
== END 2023-10-24 16:22 | disposition home or self-care (01) | DRG 309 ==
LOC: IVU 04:17
PROVIDERS: Emergency Medicine; ADMITTING PHYSICIAN Hospitalist; ATTENDING PHYSICIAN Hospitalist; CONSULT PHYSICIAN Internal Medicine Cardiovascular Disease; EMERGENCY PHYSICIAN Emergency Medicine; FAMILY PHYSICIAN Family Medicine
DX: I48.0 Paroxysmal atrial fibrillation (principal); Z68.42 Body mass index [BMI] 45.0-49.9, adult; E66.01 Morbid (severe) obesity due to excess calories; B35.4 Tinea corporis; E03.9 Hypothyroidism, unspecified; Z85.3 Personal history of malignant neoplasm of breast; Z79.01 Long term (current) use of anticoagulants
CPT/HCPCS: 80048; 80053; 80061; 82962; 83735; 84439; 84443; 84484; 85025; 85027; 86803; 93005; 93306; 96361; 96365; 96366; 97116; 97162; 97166; 97535; 99291; Q9950

== ENCOUNTER 2023-12-19 00:23 | Inpatient (IN) | payer MEDICARE, OTHER, SELFPAY ==
[2023-12-18] VITALS (7 sets, daily range): BP systolic 129–176; BP diastolic 79–126; BMI 49.8
[2023-12-18 21:29] LABS: % Basophils 0.6 % (0-2); % Immature Granulocytes 0.4 % (0-0.5); % Lymphocytes 27.7 % (20.5-51.1); % Monocytes 7.7 % (1.7-9.3); % Neutrophils 61.6 % (42.2-75.2); Absolute Basophils 0.1 10^3/uL (0-0.2); Absolute Eosinophils 0.2 10^3/uL (0-0.7); Absolute Lymphocytes 2.7 10^3/uL (1.2-3.4); Absolute Monocytes 0.8 10^3/uL (0.1-0.6); Absolute Neutrophils 6.1 10^3/uL (1.4-6.5); Hematocrit 39.9 % (37.0-47.0); Hemoglobin 13.6 g/dL (12.0-16.0); Mean Corp Hgb Conc. 34.1 g/dL (33.0-37.0); Mean Corpuscular Hgb 29.2 pg (27.0-31.0); Mean Corpuscular Volume 85.8 fL (81.0-99.0); Mean Platelet Volume 9.9 fL (7.4-10.4); Nucleated Red Blood Cells % 0 %; Platelet Count 314 10^3/uL (130-400); Red Blood Cell Count 4.65 10^6/uL (4.20-5.40); Red Cell Dist. Width 13.9 % (11.5-14.5); White Blood Cell Count 9.9 10^3/uL (4.8-10.8)
[2023-12-18 21:42] LABS: ALT (SGPT) 26 U/L (0-35); AST (SGOT) 27 U/L (14-36); Albumin 4.5 g/dl (3.5-5.0); Alkaline Phosphatase 75 U/L (38-126); Blood Urea Nitrogen 23 mg/dl (7-17); Calcium 9.5 mg/dl (8.4-10.2); Carbon Dioxide 20 mmol/L (22-30); Chloride 105 mmol/L (98-107); Estimated Creatinine Clearance 87 ml/min; Glucose 204 mg/dl (70-99); Potassium 4.4 mmol/L (3.5-5.1); Sodium 139 mmol/L (135-145); Total Bilirubin 0.8 mg/dl (0.2-1.3); Total Protein 7.1 g/dl (6.3-8.2); eGFR > 60.00
[2023-12-18] MEDS: LOPRESSOR 5 MG IV (21:47)
--- NOTE | 2023-12-18 22:25 | ED.GENMED ---
History of Present Illness
General
Chief Complaint: Heart Rate Problem
Time Seen by Provider: 12/18/23 21:09
History of Present Illness
History of Present Illness:
68-year-old female with history of atrial fibrillation on Eliquis and metoprolol presenting to the emergency department for concern of atrial fibrillation. Patient reports prior to arrival she felt herself go into A-fib. Notes similar episode in
October at which time she was started on metoprolol and Eliquis. Previous episode of A-fib had been 3 years prior. Reports that she did have COVID last week, as well as a sinus infection with started on Levaquin. 2 days ago she started to have
hematuria. She called her car sealer who recommended that she stop her Eliquis so has not had her Eliquis for the past 2 days. She took an Eliquis prior to arrival when she went into A-fib. Reports some palpitations, otherwise denies chest pain
or difficulty breathing. Notes compliance with her metoprolol, however ran out of her metoprolol to tartrate, so today was taking metoprolol succinate. Also notes that she has been very stressed out because she is been having severe knee pain from
arthritis and was not sure if that was contributing to her going into atrial fibrillation. Denies additional acute medical complaints
Past History
Past History
ED Past Medical History: Arrthythmia (Paroxysmal atrial fibrillation), Cancer (Right breast cancer), Hypercholesterolemia, Hypothyroidism, Psychiatric and Other (vertigo, DJD of knees); Negative CAD
ED Past Surgical History: Gynecological (Right mastectomy) and Other (Partial thyroidectomy)
Social History
Tobacco: Non-smoker
Alcohol: None
Drug: None
Personal:
Living: with family
Employment: Retired
Family History
Family History: Other (Noncontributory)
Phy Exam
Physical Exam
Physical Exam:
General: Well-appearing, no clinical signs of dehydration, nontoxic and in no acute distress. Morbidly obese
HEENT: protecting airway
Neck: appears supple
CV: Irregularly irregular rhythm, tachycardic, no evidence of cyanosis
Resp: No accessory muscle use, no increased work of breathing, lungs clear to auscultation bilaterally
Abd: Soft and non-distended, no tenderness to palpation
Extremities: No deformities, no swelling
Neuro: alert, no focal neurologic deficit
: deferred
Rectal: deferred
Psych: Normal affect
Skin: Intact
Course
Orders/Labs/Results
Orders:
Orders
12/18/23 19:40
Electrocardiogram (*1) Urgent
Reason for Study: Atrial Fibrillation
EKG- Treatment ONCE
12/18/23 21:21
Complete Blood Count/With Diff Urgent
Comprehensive Metabolic Panel Urgent
12/18/23 21:41
Metoprolol [Lopressor] 5 mg IV NOW STA
12/18/23 22:41
Diltiazem HCl [Cardizem] 20 mg IV NOW STA
12/18/23 23:45
Diltiazem 125 mg/125 ml Nss [Cardizem] 125 mg in 125 ml IV PER PROTOCOL
Initial dose in mg/hr, then titrate:: 5
Titrate to keep:: Heart rate 80-100 bpm
Titrate by mg/hr:: 5 mg/hr
Frequency of titrations (minutes):: 15
Maximum dose in mg/hr:: 15
12/19/23 00:12
Admit/Transfer Patient As Directed
Co-Sign Provider:
Level of Care: Inpatient admission
Assign to:: IVU
Physician / Group: Hospitalist
Diagnosis: AFIB RVR
Reason for Hospitalization: Uncontrolled AFIB
Expected length of stay greater than two midnights?: Yes
ELOS- Estimated Length of Stay in days: 2
I certify the patient meets the requirements for IP care: Yes
Code Status As Directed
Resuscitation Status: Full Code
PRN Pain Medication Management As Directed
May give lesser potent ordered pain med per pt: Yes
preference::
Protocol:: Medication orders for pain may be administered in a
manner that supports deferring to patient preference
when the pt is:
- Requesting an ordered lesser potent pain medication.
Least to most potent pain medications are defined
as: acetaminophen < NSAID < tramadol < opioids
(morphine, oxycodone, hydromorphone).
- Requesting a lesser dose of the same medication IF
ORDERED.
- Requesting a less intrusive route of administration
if both routes are prescribed by the provider (PO <
IV).
12/19/23 06:00
Levothyroxine [Synthroid] 125 mcg PO MOTUWETHFRSA
12/19/23 08:00
Apixaban [Eliquis] 5 mg PO BID
Ezetimibe [Zetia] 10 mg PO DAILY
Metoprolol [Lopressor] 37.5 mg PO BID
12/21/23 06:00
Levothyroxine [Synthroid] 250 mcg PO PERRY
Abnormal Lab Results
12/18/23
21:21
Absolute Monos (auto) 0.8 H 10^3/uL
(0.1-0.6)
Carbon Dioxide 20 L mmol/L
(22-30)
BUN 23 H mg/dl
(7-17)
Glucose 204 H mg/dl
(70-99)
12/18/23 21:21
12/18/23 21:21
Vital Signs
Initial and Last Documented VS:
Initial Vital Signs
Temp Pulse Resp BP Pulse Ox
98.8 F 121 20 146/89 98
12/18/23 19:40 12/18/23 19:40 12/18/23 19:40 12/18/23 19:40 12/18/23 19:40
Last Documented Vital Signs
Temp Pulse Resp BP Pulse Ox
98.8 F 100 24 136/85 94
12/18/23 19:40 12/19/23 01:45 12/19/23 01:45 12/19/23 01:45 12/19/23 01:45
MDM/Problems Addressed
MDM/Problems Addressed:
68-year-old female with history of A-fib presenting in atrial fibrillation. Vital signs on arrival significant for tachycardia.
On physical exam patient is well-appearing, no acute distress or discomfort. Patient does appear to be in atrial fibrillation. Currently not a candidate for cardioversion given that she missed her Eliquis in the past few days. Will try and rate
control her with IV metoprolol, is on metoprolol daily. Will screen with laboratory analysis and discussed with cardiology.
23:30 -no improvement after metoprolol so a dose of diltiazem was given, with improvement of heart rate, however still fluctuating from 90s to 130s. In discussion with cardiology, plan for diltiazem drip and admission.
*EKG
Interpreted by ED Provider?: Yes
EKG Intrepretation Date: 12/18/23
EKG Intrepretation Time: 22:31
Interpretation: abnormal
Comparison EKG: changes noted (10/24/23)
Heart Rate: 133
Rate: tachycardiac
Rhythm: a-fib
[place]: normal axis
QRS Pattern: normal QRS
Ischemia: no ischemia
*Critical Care Note
Total Time (30-74mins, 75-104mins- exclusive of procedures): 36
comment:
The high probability of a clinically significant, sudden or life threatening deterioration of the cardiovascular system(s) required my full and direct attention, intervention and personal management. The aggregate critical care time was 36 minutes.
This time is in addition to time spent performing reported procedures but includes the following:
[x] Data Review and interpretation
[x] Patient assessment and monitoring of vital signs
[x] Documentation
[x] Medication orders and management
ED Attending Note
-
Portions of this chart may have been created with voice recognition software.� Occasional wrong word or��sound alike� substitutions may have occurred due to the inherent limitations of voice recognition software.
Discharge Plan
Departure
Patient Disposition: Admit
Date of Disposition: 12/18/23
Time of Disposition: 23:41
Presentation/result/management discussed w/ accepting MD/DO: Hospitalist
Patient with high blood pressure during this ER visit?: No
Discharge Problem:
Atrial fibrillation with rapid ventricular response
Interventions
Interventions:
*General Assessment Last Done: 12/18/23 20:25
ED- Fall Risk Assessment Last Done: 12/18/23 20:25
*ED COVID-19 Vaccine History Last Done: 12/18/23 20:25
ED- Cardiac Assessment Last Done: 12/18/23 20:25
ED- Pulmonary Assessment Last Done: 12/18/23 20:25
[2023-12-18] MEDS: CARDIZEM 20 MG IV (22:57)
--- NOTE | 2023-12-18 23:56 | HPS.HSE ---
Family Physician
-
Family Physician: Ne Metz
Chief Complaint
-
Palpitations and tachycardia
History of Present Illness
This is a 68-year-old female with past medical history of paroxysmal atrial fibrillation on anticoagulation with apixaban and rate control with metoprolol, hypothyroidism, obesity and ROB who presents to the emergency department with palpitations
and tachycardia.
Patient reported that she was seen here at the beginning of October with atrial fibrillation. She was put on metoprolol and apixaban at that time. Patient converted to normal sinus rhythm. She felt that she has not had symptoms of palpitations
since then. Today she started having the palpitation and felt her rate was fast. She had a heart rate monitor at home which read possible atrial fibrillation so she decided come to the emergency department. She denies feeling dizzy or
lightheaded. She denies having any chest pain or shortness of breath. Patient reports that she been compliant with her medications and has been taking her metoprolol 37.5 mg twice daily although she was supposed to cut down due to complaints of
feeling lightheaded with low blood pressure.
Patient reports recent episode of COVID-19 followed by worsening knee pain status post injection. She reported that she stopped taking apixaban on Friday due to episode of gross hematuria. She denied dysuria. She denied joanne flank pain. She
denied fevers or chills. She restarted the apixaban today after over 3 days of abstaining. She reported hematuria resolved spontaneously.
She reports a prior history of nephrolithiasis seen at an outside hospital. She does not recall passing any stone but resolution of symptoms.
On arrival intermittent department she was afebrile, blood pressure was 170s over 90, she was tacky to 140s. ECG shows atrial fibrillation at rate of 133. She was given IV metoprolol without much improvement. She was then given IV diltiazem. CBC
was unremarkable. Chemistries were all within normal limits.
Medical History
Past Medical History
Past Medical History: Reports Arrhythmia (Proximal atrial fibrillation) and Hypothyroidism
Past Surgical History: Reports None
Social History
Tobacco: Non-smoker
Alcohol: None
Drug: None
Personal:
Living: With Family
Employment: Retired
Family History
Family History: Not pertinent
Allergies / Home Medications
Allergies reflects when Allergies were last updated in [facility].
Home Medications with original date entered in [facility]
Allergy/Medication List:
Allergies
Allergy/AdvReac Type Severity Reaction Status Date / Time
Penicillins Allergy Severe Throat Verified 10/22/23 22:31
Swelling
latex Allergy Itching Verified 10/22/23 22:31
and rash
Home Medications
Vitamin D2 1.25 mg PO SUTH Supplement 09/27/19
ezetimibe 10 mg tablet 10 mg PO DAILY High Cholesterol 09/27/19
levothyroxine 125 mcg tablet 125 mcg PO MOTUWETHFRSA 09/27/19
levothyroxine 125 mcg tablet 250 mcg PO PERRY Thyroid 09/27/19
metoprolol tartrate 25 mg tablet 25 mg PO BID Heart Disease/Condition 10/22/23
apixaban 2.5 mg tablet (Eliquis) 5 mg (2 x 2.5 mg) PO BID #60 tabs 10/24/23
clotrimazole-betamethasone 1 %-0.05 % topical cream 1 applic topical BID #15 grams 10/24/23
metoprolol succinate 25 mg tablet,extended release 24 hr 12.5 mg (1/2 x 25 mg) PO BID Arrhythmia #60 tabs 10/24/23
Review of Systems
-
History Source: Patient
Constitutional: Reports No Symptoms
EENT: Reports No Symptoms
Respiratory: Reports No Symptoms
Cardiac: Reports Palpitations
Abdomen/GI: Reports No Symptoms
: Reports No Symptoms
Musculoskeletal: Reports No Symptoms
Skin: Reports No Symptoms
Neurological: Reports No Symptoms
Endocrine: Reports No Symptoms
Hematologic/Lymphatic: Reports No Symptoms
Psych: Reports No Symptoms
Physical Exam
Vital Signs
Vital Signs
Temp Pulse Resp BP Pulse Ox
98.8 F 105 36 176/94 92
12/18/23 19:40 12/18/23 22:57 12/18/23 22:30 12/18/23 22:57 12/18/23 22:30
Physical Exam
General: Well Developed, Well Nourished, No Apparent Distress and Morbidly Obese
HEENT: NormoCephalic, Anicteric, Moist mucous membranes, Atraumatic and PERRLA
Respiratory: Clear
Cardiac: S1/S2, Irregular Rhythm and Tachycardia
Breast: Deferred by me
GI: Soft, Non Tender and Non Distended
Rectal: Deferred by Provider
Genito-urinary: Deferred by me
Musculoskeletal: No Clubbing, No Cyanosis and No Edema
Skin: Warm
Neuro: AO x 3
Hematologic/Lymphatic: No Lymphadenopathy
Psych: Anxious
Laboratory Results
-
12/18/23 21:21
12/18/23 21:21
Laboratory Results
Total Bilirubin 0.8 mg/dl (0.2-1.3) 12/18/23 21:21
AST 27 U/L (14-36) 12/18/23 21:21
ALT 26 U/L (0-35) 12/18/23 21:21
Alkaline Phosphatase 75 U/L (38-126) 12/18/23 21:21
Data Reviewed
-
Medical Tests (Nuc Med, Echo, EKG etc): Image Personally Visualized and interpreted
Lab Data: Labs Reviewed by me
Old Records: Reviewed
Impression/Plan
-
IMPRESSION:
68-year-old female with history of paroxysmal atrial fibrillation coming in with A-fib with rapid ventricular response that started a few hours prior to arrival in the emergency department. She is hemodynamically stable and overall well-appearing.
No significant abnormalities in the labs. No ischemia on ECG. No history of noncompliance with oral rate control agent.
PLAN:
1. AFIB RVR -rates in the 140s, hemodynamically stable. No initial response to IV metoprolol. Started on diltiazem with response to the initial bolus.
- admit to ivu
- start diltiazem gtt for now
- patient had a gap in anticoagulation, stopped Xarelto friday night for hematuria and restarted today, so not anticoagulated
- however symptoms has been less than 48 hours and she reports always symptomatic with afib, at any rate, she is stable with the fast rate and no indication to cardiovert yet in this setting
- NPO at breakfast pending cardiology eval
- check tsh
- continue oral metoprolol for now
- cardiology consult.
2. Hematuria - Gross hematuria while on apixaban recently. Denies other urinary symptoms. H/O nephrolithiasis. Reports hematuria has cleared the following day of holding apixaban.
- check u/a for infection blood
- if no infection and +blood consider stone search though only explanatory as patient is otherwise asymptoamtic
3. Hypothyroid
- continue levothyroxine
4. ROB -
- CPAP HS starting tomorrow, oxygen HS prn tonight
5. Sinus Congestion - Recent episode of sinus congestion of mixed etiology. Has been on levaquin, marie and famotidine. completeted leqaquin and given bactrim by ENT.
- prn nasal spray, h2 blockade
- hold off further abx
DVT PPX - on apixaban
Code Status - Full Code
[2023-12-18] MEDS: CARDIZEM 125 IV (23:58)
[2023-12-19] VITALS (12 sets, daily range): BP systolic 129–189; BP diastolic 66–105; BMI 49.8; BMI 49.4
--- NOTE | 2023-12-19 03:13 | PTCARENOTE ---
Pt admitted to IVU around 0214. HR afib. Pt belongings w/ pt. Cardizem infusing at 15mg/hr. Pt oriented to unit and room.
[2023-12-19] MEDS: SYNTHROID 125 MCG PO (05:38)
[2023-12-19 06:11] LABS: Blood Urea Nitrogen 20 mg/dl (7-17); Calcium 9.2 mg/dl (8.4-10.2); Carbon Dioxide 24 mmol/L (22-30); Chloride 106 mmol/L (98-107); Estimated Creatinine Clearance 86 ml/min; Glucose 140 mg/dl (70-99); Potassium 4.3 mmol/L (3.5-5.1); Sodium 142 mmol/L (135-145); eGFR > 60.00
--- NOTE | 2023-12-19 08:31 | CON.CAR ---
Addendum entered and electronically signed by Augustin Sinclair MD 12/19/23 11:03:
I saw and examined the patient.
The PLASTICS HEAT WELDER's note was reviewed and I agree with the note.
Comment: She is feeling better. She is back in NSR. She had no cp, dizziness or sob with palpitations last night. She is morbidly obese, rrr, lungs are CTA, no w/r/r. LE edema is absent. Reviewed the natural course of paroxysmal atrial
fibrillation. We reviewed reasons to seek care in the emergency room being chest pain, shortness of breath or dizziness. Otherwise she can try all an extra dose of her metoprolol. She is on metoprolol 37 twice daily. So she could take an extra
25 mg for palpitations as needed. If she was still in the rhythm after 48 hours then she will need to call the office. Moving forward, given 2 episodes in the recent past, would pursue rhythm control. I explained that she must lose weight in
order for rhythm control to be effective. She needs to become active as well. She is on CPAP for her ROB. She had a recent episode of hematuria of unclear etiology. She has a urinalysis and culture pending with her primary who she saw yesterday.
She has plans for follow-up with urology/nephrology.
Okay to discharge from a cardiac perspective. Will sign off.
Original Note:
Consultation
Consultation Request
Date/Time Consultation Requested: 12/19/2023 03:00
Date/Time Consultation Performed: 12/19/2023 09:30
Requesting Provider: Dr. Arroyo
Performing Provider: LIS Bella for Dr. Sinclair
Reason for Consultation: Atrial fibrillation with rapid ventricular response
Medical History
-
Chief Complaint: Palpitations
History of Present Illness:
Ne Villela is a 68-year-old female (known to Dr. Win, her primary body wirer), with paroxysmal atrial fibrillation (on apixaban), statin intolerant dyslipidemia, ROB on CPAP, prior breast cancer status postmastectomy and XRT,
hypothyroidism status post thyroidectomy, and obesity who presented with palpitations. She was found to be in atrial fibrillation with rapid ventricular response. She was recently admitted in September, with atrial fibrillation with rapid
ventricular response. She was discharged on metoprolol 50 mg twice daily. At home, she had some hypotension. This was decreased to 37.5 mg twice daily. On Friday she had brown urine. Then on Friday she had red urine. She was told to hold her
apixaban. She had approximately a 3-day hold her hematuria resolved. She resumed her apixaban and did not have any abnormal bleeding.
Past Medical History
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
Past Surgical History: Other (Mastectomy, Partial thyroidectomy)
Social History
Tobacco: Former Smoker
Alcohol: Occasional
Personal:
Living: With Family
Family History
Family History: Reviewed & Not Pertinent
Allergies / Home Medications
Allergy/AdvReac Type Severity Reaction Status Date / Time
Penicillins Allergy Severe Throat Verified 10/22/23 22:31
Swelling
latex Allergy Itching Verified 10/22/23 22:31
and rash
�Medication �Instructions �Recorded �Confirmed �Type
Vitamin D2 1.25 mg PO SUTH Supplement 09/27/19 10/22/23 History
ezetimibe 10 mg tablet 10 mg PO HS High Cholesterol 09/27/19 12/19/23 History
levothyroxine 125 mcg tablet 125 mcg PO MOTUWETHFRSA 09/27/19 12/19/23 History
levothyroxine 125 mcg tablet 250 mcg PO PERRY Thyroid 09/27/19 12/19/23 History
metoprolol tartrate 25 mg tablet 25 mg PO BID Heart 10/22/23 10/22/23 History
Disease/Condition
apixaban 2.5 mg tablet (Eliquis) 5 mg (2 x 2.5 mg) PO BID #60 tabs 10/24/23 12/19/23 Rx
clotrimazole-betamethasone 1 1 applic topical BID #15 grams 10/24/23 12/19/23 Rx
%-0.05 % topical cream
metoprolol succinate 25 mg 12.5 mg (1/2 x 25 mg) PO BID 10/24/23 Rx
tablet,extended release 24 hr Arrhythmia #60 tabs
pravastatin 40 mg tablet 40 mg PO HS 12/19/23 12/19/23 History
Review of Systems
-
History Source: Patient
All other systems: Negative unless noted
Constitutional: Fatigue
EENT: No Symptoms
Respiratory: No Symptoms
Cardiac: Palpitations
Abdomen/GI: No Symptoms
: No Symptoms
Musculoskeletal: No Symptoms
Skin: No Symptoms
Neurological: No Symptoms
Endocrine: No Symptoms
Hematologic/Lymphatic: No Symptoms
Physical Exam
Vital Signs
Temp Pulse Resp BP Pulse Ox
98.2 F 133 20 137/76 96
12/19/23 06:53 12/19/23 05:45 12/19/23 06:53 12/19/23 05:14 12/19/23 06:53
Lab Results
12/18/23 21:21
12/19/23 05:32
Physical Exam
General: Well Developed, Well Nourished and No Apparent Distress
HEENT: Normocephalic, Anicteric and Moist Mucous Membranes
Respiratory: Clear and Non Labored Respirations
Cardiac: S1/S2 and Irregular Rhythm; Negative Peripheral Edema
Breast: Deferred by me
GI: Soft, Non Tender, Non Distended and Normal Bowel Sounds
Rectal: Deferred by Provider
Genito-urinary: No Costovertebral Tender
Musculoskeletal: No Clubbing, No Cyanosis and No Edema
Skin: Warm and Dry
Neuro: AO x 3
Hematologic/Lymphatic: No Lymphadenopathy
Psych: Calm
Impression / Plan
-
BACKGROUND: 68F with paroxysmal atrial fibrillation (on apixaban), statin intolerant dyslipidemia, ROB on CPAP, prior breast cancer status postmastectomy and XRT, hypothyroidism status post thyroidectomy, and obesity who presented with palpitations.
She was found to be in atrial fibrillation with rapid ventricular response.
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 Win
PLAN:
Atrial fibrillation with ventricular response
-Rate controlled with metoprolol and diltiazem drip
-She had lower extremity edema with oral diltiazem
-Rhythm control until hematuria is evaluated by primary service
-Oral Anticoagulation: Apixaban 5 mg twice daily, unfortunately she has had recent missed doses
-[id number]: Score at least 2 (age 65-74, female gender)
Hematuria, per primary
Prior breast cancer status post lumpectomy with eventual mastectomy status post XRT
Hypothyroidism, TSH pending
ROB, on CPAP
Dyslipidemia with statin intolerance, on Zetia and pravastatin
Morbid obesity, BMI 49.4, she would benefit from weight loss
SUBJECTIVE: See ROS
DATA:
Transthoracic echocardiogram, 10/23/2023:
LV ejection fraction is 70-75%. Normal regional wall motion.
Normal right ventricular size and function.
No significant valvular disease.
No prior study available for comparison.
Data Reviewed
-
EKG: Report Reviewed by me (Atrial fibrillation with rapid ventricular response, nonspecific ST and T wave abnormality, rate 117)
Medical Tests (Nuc Med, Echo etc): Report Reviewed by me (Prior echocardiogram as above)
Labs: Labs Reviewed by me
Old Records: Reviewed
[2023-12-19] MEDS: ELIQUIS 5 MG PO (08:37)
[2023-12-19] MEDS: ZETIA 10 MG PO (08:37)
[2023-12-19] MEDS: LOPRESSOR 37.5 MG PO (08:38)
[2023-12-19] MEDS: CLARITIN 10 MG PO (09:32)
--- NOTE | 2023-12-19 10:13 | W.PN.UPDATE ---
Addendum entered and electronically signed by Devan Jose MD 12/19/23 13:39:
Total time spent on d/c = 31 min. This included today's physical exam, progress note, review of laboratory and diagnostic data, preparation of discharge documents and prescriptions, and discussions about the pt's hospital course and discharge plan
with the patient and other ophthalmic medical technologist involved in the patient's care.
Original Note:
Update Note
Progress Note Update
I saw and evaluated the patient. I reviewed the resident�s note and agree with findings and plan as documented in the resident�s note.
No new complaints.
Gen: NAD, AAOx3.
Eyes: EOMI, PERRLA, no scleral icterus.
Neck: supple.
CV: gena, reg rhythm, +S1/S2, no m/r/g.
Resp: CTAB, no rales, wheezes, or rhonchi.
Abd: +BS, soft, NT, ND
Skin: No rashes.
Neuro: CN 2-12 intact, non-focal.
Psych: Normal mood and affect.
Echo 10/23/23: EF 70-75%. Normal regional wall motion. Normal right ventricular size and function. No significant valvular disease.
Afib with RVR:
-s/p IV Lopressor followed by Cardizem bolus and then Cardizem infusion
-cardizem gtt stopped when pt converted to SR this AM
-cont Eliquis/BB
-c/s cards
-TSH pending
Hematuria:
-cont Eliquis for now
-trend Hb
Other problems:
Hypothyroidism: Continue Levoxyl
Obstructive sleep apnea: CPAP HS
Morbid obesity due to excess calories: Encourage weight loss, affects all aspects of care
FULL/Eliquis
Possible d/c later today. Will d/w cards.
[2023-12-19] MEDS: LOPRESSOR 12.5 MG PO (10:30)
[2023-12-19] MEDS: CARDIZEM 125 IV (10:30)
--- NOTE | 2023-12-19 10:58 | PTCARENOTE ---
Pt converted to NSR at 1021. Vitals and EKG obtained. aware. Will monitor.
--- NOTE | 2023-12-19 11:10 | W.PN.HOSP.TC ---
Today's Communication/Plan
-
Pt converted to NSR. Pt to be d/c to home today. Seen by cardiology and signed off.
Assessment / Plan
Assessment / Plan
68F on day 1 of her admission for atrial fibrillation with RVR.
1. A-fib with RVR
- Diagnosed with Afib in 10/2023. Home meds include Apixaban and Metoprolol.
- Pts rate controlled with metoprolol and Cardizem bolus/Cardizem gtt
- HR 83 at the time I saw the patient
- Pt converted to NSR today, seen by cardiology.
- Pt to be discharged home today, continue with Eliquis/Metoprolol; per cards reccs, pt to take an extra dose of metoprolol if she experiences palpitations.
2. Hematuria
- Epsiode prior to arrival. Hb stable here.
- Pt to continue Eliquis for now.
- Pt to follow up with PCP.
3. Hypothyroidism
- Continue Levothyroxine
- Advise TSH outpatient
Anticipated Discharge: Today
Subjective/Interval History
-
Date of Service: December 19, 2023
75F w/ PMHx atrial fibrillation on anticoagulation, hypothyroidism, ROB, hyperlipidemia admitted yesterday for A-fib with RVR. Pt states that she is feeling better today. Pt denies CP, SOB, dizziness, lightheadedness with standing. Pt was seen by
cardiology and told that she was okay to be discharged home.
Objective Data
-
Labs:
Laboratory Results
12/19/23
05:32
Sodium 142
Potassium 4.3
Chloride 106
Carbon Dioxide 24
BUN 20 H
Creatinine 0.7
Glucose 140 H
Calcium 9.2
Vital Signs:
Vital Signs
Temp Pulse Resp BP Pulse Ox
98.2 F 61 20 142/81 96
12/19/23 06:53 12/19/23 10:30 12/19/23 06:53 12/19/23 10:30 12/19/23 06:53
Review of Systems
-
History Source: Patient
Constitutional: Reports No Symptoms
Respiratory: Reports No Symptoms
Cardiac: Reports No Symptoms
Genitourinary: Reports No Symptoms
Neuro: Reports No Symptoms
Physical Exam
-
General: Well Developed, Well Nourished and Obese
HEENT: Normocephalic and Atraumatic
Respiratory: Clear to Auscultation
Cardiac: Regular Rhythm
GI: Soft and Nontender
Musculoskeletal: No Edema
Skin: Warm and Dry
Neuro: Awake, Alert and Oriented
Psych: Calm
Data Reviewed
-
Labs: Labs Reviewed by me and Discussed with Patient
[2023-12-19 11:52] LABS: TSH Reflex To Free T4 4.81 uIU/ml (0.47-4.68)
--- NOTE | 2023-12-19 11:57 | CM ---
Chart reviewed. Patient is independent of ADLS, lives with her in a [address] [facility], [address] [facility], ambulates with a RW. Plan is for the patient to return home.
Patient notified me of her denial with Eliquis financial assistance. Patient told me she can not afford Eliquis. Last hospitalization we priced Dabigastran and it does need a prior authorization. It is covered under [facility] at $57. I notified
Kelli Sands
[2023-12-19 12:27] LABS: Free T4 1.33 ng/dl (0.78-2.19)
--- NOTE | 2023-12-19 12:54 | W.DCSUMMARY ---
Addendum entered and electronically signed by Devan Jose MD 12/19/23 13:39:
Read, reviewed, and agree. See same day progress note for additional details.
Original Note:
Discharge Summary
Discharge Data
Date of Admission: 12/19/23
Date of Discharge: 12/19/23
Total time spent discharging patient (in min): Less than 30 min
-
Pending Results: No
Hospital Course
Ne Olmstead is a 68-year-old female with a past medical history of atrial fibrillation, hypothyroidism, obstructive sleep apnea, hyperlipidemia who presented to the emergency department at [facility] on December 18, 2023 for
palpitations. The patient was recently diagnosed with atrial fibrillation in October 2023 at which time she was started on metoprolol and Eliquis. Patient reported that she had COVID last week as well as a sinus infection and was started on
Levaquin. 2 days prior to arrival she began to have hematuria. She called her chief information officer who recommended that she stop her Eliquis and so she had not been on Eliquis for 2 days prior to her arrival. When she went into atrial fibrillation, she
took 1 dose of Eliquis and then went to the emergency room. Other than palpitations the patient did not experience any chest pain difficulty breathing or dizziness. In the emergency department the patient was tachycardic in the 140s with a rhythm
denoting atrial fibrillation. The patient was given IV metoprolol which did not improve the rate or rhythm. The patient was then put on IV diltiazem which improved the patient's heart rate. The patient was subsequently admitted and put on a
diltiazem drip.
EKG the morning after continued to show atrial fibrillation with rapid ventricular response with a ventricular rate of 117 bpm. However over the course of the morning the patient converted back to normal sinus rhythm. The patient commented that
she was feeling better. She had no chest pain, dizziness, shortness of breath. At that time cardiology felt it was safe to discharge her home and follow-up on an outpatient basis.
The patient was advised to continue her outpatient dose of apixaban and metoprolol and to take an extra dose of the metoprolol if she experienced palpitations. Patient was advised to follow-up with her PCP and the chief information officer. The patient was
discharged on December 19, 2019 for after 1 day of admission
Discharge Plan
-
Patient Disposition: Home (Routine Discharge)
Discharge Diagnosis/Procedures: Atrial Fibrillation with Rapid Ventricular Response
Condition: Fair
Diet: As tolerated
Activity: As tolerated
Referrals:
Ne Metz MD [Family Provider] - in less than 1 week
Additional Discharge Medication Instructions: Continue to take previously perscribed medications (Eliquis, Metoprolol) for atrial fibrillation. The patient can take an extra dose of the Metoprolol if she has palpitations in the future.
Prescriptions:
Continued
levothyroxine 125 MCG tablet
250 mcg PO PERRY
levothyroxine 125 MCG tablet
125 mcg PO MOTUWETHFRSA
ezetimibe 10 MG tablet
10 mg PO HS
Vitamin D2 1.25 MG Tab
1.25 mg PO SUTH
metoprolol tartrate 25 mg Tablet
25 mg PO BID
Eliquis 2.5 mg Tablet
5 mg PO BID Qty: 60 0RF
clotrimazole-betamethasone 1-0.05 % Cream
1 applic topical BID Qty: 15 0RF
metoprolol succinate 25 mg Tablet Extended Release 24 Hr
12.5 mg PO BID Qty: 60 0RF
pravastatin 40 mg Tablet
40 mg PO HS
Discharge Orders:
Discharge Patient (As Directed); Ordered 12/19/23
Ordered By: Ranjith Crandall
Care Plan Goals
Care Plan Goals:
Problem: Readiness for enhanced knowledge related to diagnosis and treatment plan
Goal: Understand your diagnosis and treatment plan needs, including medications if applicable.
Instructions: Know your diagnosis, underlying causes and treatment plan options, including medications if applicable. Consult with your health care team to learn about your diagnosis and treatment plan, including medications if applicable.
Discharge Date and Time
Print Language: ESTONIAN
[2023-12-19 13:00] LABS: Glycohemoglobin (HgbA1c) 6.5 % (4.0-5.6)
--- NOTE | 2023-12-19 13:00 | PTCARENOTE ---
Discussed pt's discharge meds specifically metoprolol. I clarified w/ the pt that she should be taking metoprolol suddinate 12.5 mg BID and metoprolol tartrate 25mg BID. This was clarified by the hospitalist who clarified w/ cardiology.
--- NOTE | 2023-12-19 13:12 | PTCARENOTE ---
Discussed afib and heart failure w/ pt and pt's . Encouraged questions.
== END 2023-12-19 14:50 | disposition home or self-care (01) | DRG 309 ==
LOC: IVU 00:23
PROVIDERS: ADMITTING PHYSICIAN Internal Medicine; ATTENDING PHYSICIAN Internal Medicine; EMERGENCY PHYSICIAN Student in an Organized Health Care Education/Training Program; FAMILY PHYSICIAN Family Medicine; OTHER PHYSICIAN Internal Medicine Cardiovascular Disease
DX: I48.0 Paroxysmal atrial fibrillation (principal); Z68.42 Body mass index [BMI] 45.0-49.9, adult; E66.01 Morbid (severe) obesity due to excess calories; E78.00 Pure hypercholesterolemia, unspecified; E89.0 Postprocedural hypothyroidism; G47.33 Obstructive sleep apnea (adult) (pediatric); M17.0 Bilateral primary osteoarthritis of knee; R31.0 Gross hematuria; T44.7X6A Underdosing of beta-adrenoreceptor antagonists, initial encounter; Z91.148 Patient's other noncompliance with medication regimen for other reason; I95.9 Hypotension, unspecified; R09.81 Nasal congestion; Z79.01 Long term (current) use of anticoagulants; Z79.890 Hormone replacement therapy; Z79.899 Other long term (current) drug therapy; Z86.16 Personal history of COVID-19; Z85.3 Personal history of malignant neoplasm of breast; Z90.11 Acquired absence of right breast and nipple; Z87.442 Personal history of urinary calculi; Z87.891 Personal history of nicotine dependence; Z88.0 Allergy status to penicillin; Z91.040 Latex allergy status
CPT/HCPCS: 80048; 80053; 83036; 84439; 84443; 85025; 93005; 96374; 96375; 96376; 99291

== ENCOUNTER → 2024-12-06 09:17 | Outpatient (REF) | payer MEDICARE, OTHER, SELFPAY ==
--- NOTE | 2024-11-10 11:45 | PN.DIAED02 ---
Addendum entered by Liliya Costa RN 11/10/24 12:05:
Addendum: she also mentioned her provider may consider a GLP1-RA for weight management and DM. Possibly consider bilateral knee replacement if she can lose weight.
Original Note:
Referral
DSME Class Series Code: [id number]
Referred For: Diabetes Self-Management Training, Medical Nutrition Therapy, Self-Blood Glucose Monitoring, Long-Term Complication Instruction, Accute Complication Instruction, Continuous Glucose Monitoring, Medication management, Care Coordination,
Disease Management
PHI Release Authorization Form Signed: Yes
Demographic
(1) Type 2 diabetes mellitus with hyperglycemia
Status: Chronic
Qualifiers:
Diabetes mellitus mcc insulin use: without mcc use Qualified Code(s): E11.65 - Type 2 diabetes mellitus with hyperglycemia
Code(s): E11.65 - Type 2 diabetes mellitus with hyperglycemia
Patient's primary language-: Malay
Education: Some college
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
- Social
Primary Support Person: Self & spouse
Primary Care Takers: Self & spouse
Living Arrangements: Self & spouse
- Learning Methods
Preferred Method: Reading, Lecture/audio, Hands-on demonstration, Video, Group discussion
Barriers to Learning: None
Glycemic Control
- Blood Glucose Monitoring Assessment
Date: 11/10/24 (187 2 hour post prandial)
Blood glucose monitoring at home: No (she will requested supplies from PCP, )
Monitor Brands: Other (gave her Contour Next Gen meter)
Frequency: 1x per day
Time: fasting, after breakfast, after lunch, after dinner
- Hyperglycemia Assessment
Experiences Hyperglycemia: No
- Hypoglycemia Assessment
Patient experiences hypoglycemia: No
- Blood Glucose Monitoring Results
Source: meter (187 2 hour post prandial, in office)
- Hemoglobin A1c
Date: 09/27/24
A1C Percentage (%): 7.4
Medical History of Diabetes
Family Diabetes History: Sibling
Previous Diabetes Education: No
Previous visit with Dietitian: No
Complications/Comorbidity/Specialist: Autoimmune (partial thyroidectomy: Levothyroxine 125 mcg Fri-Fri QD, Friday 2 tablets), Heart Disease (afib: Eliquis 5 mg QD), Hypertension (Metoprolol Tartrate 25 mg), Hyperlipidemia (Pravastatin Sodium 40 mg
QD, Zetia 10 mg QD), Metabolic (DM2 - no meds)
Measures
- Anthropometrics
Height: 5 ft
Actual Weight: 260 lb
- Blood Pressure / Pulse
Blood pressure: 162/84
Pulse: 66
- Diabetes Management
Medical Management for Diabetes: Complete physical exam (04/2024), Dental exam (06/2024), Dilated eye exam (11/09/2024), Flu Vaccination (11/2023), Foot exam (07/2024), Other (Covid vax 2019)
Self-Care
- Tobacco Usage
Do you now, or have you ever smoked?: Quit more than 1 year ago (quit 25 yrs ago)
- Alcohol & Drugs Usage
Drinks Alcohol: No
- Meals & Dining
Meals & Dining: Patient skips meals: No, Food Intolerance / Allergy: No, Cultural / Zoroastrian Dietary Needs: No
Primary Food Manager Of It: Spouse
Primary Resident Service Coordinator: Self
Dining Out Frequency: 4-6x per week
- Physical Activity
Physical Limitation: Yes (bilateral knee arthritis)
Patient participates in physical Activity: No
- Self Foot-Care
Foot Problems: None
- Patient-Self Assessment
Diabetes Knowledge: Poor
Feelings About Diabetes: Acceptance
General Health: Fair
Importance of Health: Extremely
Stress Level: Medium
Diabetes Interferes With:: Nothing
Barriers to Diabetes Management: Nothing
Depression Survey Score: 8
- Diabetes Identification
Carries Diabetes Identification: No
Diabetes Identification Information Provided: Yes
Care Plan
- Education Needs
Patient Education Needs: Diabetes disease process, Chronic complications, Acute complications, Medication, Monitoring, Physical activity, Psychosocial Adjustment, Nutritional management, Goal setting & problem solving
Recommended Diabetes Training Program based on assessment: Outpatient Diabetes Education Program
- Plan of Care
Plan of Care:
11/10/2024 INITIAL DSME CONSULTATION
Met with participant and her spouse Amarjit, today for registration and initiation of Diabetes Self-management. Pt was recommended by her PCP due to HbA1c of 7.4% in 09/2024.
She had a virus and was on steroids, while inpatient was taking insulin and it was determined she has DM. Another HbA1c after
discharged showed A1c diagnostic of DM.
She does not monitor glucose, states MD never discussed this. I provided sample of Contour Next glucose meter and supplies. Demonstrated how to monitor glucose and recommended he check once a day in the AM and alternate 2 hours after meals and
review with provider. BS today was 187 2 hours post prandial. She will call her PCP to request additional glucose testing supplies.
We reviewed complications of diabetes, fasting and 2 hour post prandial glucose goals, signs and symptoms of hyperglycemia, signs and symptoms of hypoglycemia, and hypoglycemia protocol. She has bilateral OA of knees, cannot perform cardiovascular
exercise. We discussed exercise recommendations of at least 30 minutes per day to help lower glucose levels, discussed chair exercises or reps with arms and to discuss with her PCP prior to starting.
She has a PMH of Covid, sleep apnea (wears CPAP), afib, partioal thyroidectomy, hyperlipidemia, high cholesterol. She also takes supplements: CoQ-12, B12, Vitamin D, and OTC Claritin 10 mg QD. I reviewed and provided diabetes management booklet,
insurance billing code and advised she contact her health plan to discuss coverage and cost.
She has phone # for office if additional needs arise prior to class.
--- NOTE | 2024-11-10 12:04 | PN.DIAED04 ---
Education Record
- Education Record
Class Attended: Other (INITIAL DSME CONSULT 11/10/2024)
DSME Class Series Code: [id number]
Instructor: Nurse Practitioner (LIS Vyas)
Pre-Program Knowledge: Needs review / Assistance
Pre-Test Score (%): 53
Goals
- Goal 1
Being Active: Exercise 30 minutes-5 times per week
Goals To Be Evaluated: Exercise 30 mins-5x/week
- Goal 2
Healthy Eating: Make better food choices
Goals To Be Evaluated: Make better food choices
- Goal 3
Monitoring: Monitor more often
Goals To Be Evaluated: Monitor more often
--- NOTE | 2024-12-07 12:09 | PN.DIAED14 ---
This is to notify you that your patient with diabetes, ANSHU VARGAS ( 1955), has enrolled in our diabetes self-management classes that are being held at [facility].
These classes will include an introduction to diabetes, diet, medication, exercise and prevention of complications. At the end of our class series, you will receive a report of your patient's participation and progress for your records.
Please contact me at the Diabetes Center, , if there is any particular information regarding your patient that might be helpful to me.
Sincerely,
Dinesh HAYS-, [facility]
--- NOTE | 2024-12-07 12:10 | PN.DIAED04 ---
Education Record
- Education Record
Class Attended: Class 1
DSME Class Series Code: [id number]
Instructor: Registered Nurse (Liliya Costa RN)
Class Curriculum:
Outpatient Diabetes Education Program:
Class 1 (120 minutes)
Describe the diabetes disease process and treatment options
Diabetes management
Develop personal strategies to promote health and behavior change
Integrate psychosocial adjustment for daily living
Monitor blood glucose and other parameters. Interpret and use the results for self-management decision making
Prevent, detect, and treat acute complications
Class Length (mins): 120
Post-Class 1 Test Score (%): 100
== END ==
LOC: DES 09:17
PROVIDERS: ATTENDING PHYSICIAN Family Medicine
DX: E11.65 Type 2 diabetes mellitus with hyperglycemia (principal)
CPT/HCPCS: 99078

== ENCOUNTER → 2024-12-13 08:25 | Outpatient (REF) | payer MEDICARE, OTHER, SELFPAY ==
--- NOTE | 2024-12-14 09:17 | PN.DIAED04 ---
Education Record
- Education Record
Class Attended: Class 2
DSME Class Series Code: [id number]
Instructor: Registered Dietitian (Laurita Norman, RD, LDN, CDE)
Class Curriculum:
Outpatient Diabetes Education Program:
Class 2 (120 minutes)
Incorporate nutritional management into lifestyle
Understanding nutritional value
Understanding carbohydrate counting
Class Length (mins): 120
== END ==
LOC: DES 08:25
PROVIDERS: ATTENDING PHYSICIAN Family Medicine
DX: E11.65 Type 2 diabetes mellitus with hyperglycemia (principal)
CPT/HCPCS: 99078

== ENCOUNTER → 2024-12-20 14:49 | Outpatient (REF) | payer MEDICARE, OTHER, SELFPAY ==
--- NOTE | 2024-12-21 13:53 | PN.DIAED04 ---
Education Record
- Education Record
Class Attended: Class 3
DSME Class Series Code: [id number]
Instructor: Registered Dietitian (Laurita Norman, RD, LDN, CDE)
Class Curriculum:
Outpatient Diabetes Education Program:
Class 3 (120 minutes)
Incorporate nutritional management into lifestyle
Class Length (mins): 120
Post-Class 2 & 3 Test Score (%): 94
== END ==
LOC: DES 14:49
PROVIDERS: ATTENDING PHYSICIAN Family Medicine
DX: E11.65 Type 2 diabetes mellitus with hyperglycemia (principal)
CPT/HCPCS: 99078

== ENCOUNTER 2024-12-22 21:34 | Emergency (ER) | payer MEDICARE, OTHER, SELFPAY ==
[2024-12-22 21:36] VITALS: BP 145/94
[2024-12-22 22:06] LABS: Urine Character Clear (Clear)
[2024-12-22 22:14] LABS: Urine Squamous Cell 16-20 /LPF (Few)
[2024-12-22 22:15] LABS: Urine Red Blood Cell >100 /HPF (0-2)
[2024-12-22 22:22] LABS: Hematocrit 41.2 % (37.0-47.0); Hemoglobin 13.8 g/dL (12.0-16.0); Mean Corp Hgb Conc. 33.5 g/dL (33.0-37.0); Mean Corpuscular Volume 87.5 fL (81.0-99.0); Nucleated Red Blood Cells % 0 %; Platelet Count 293 10^3/uL (130-400); Red Cell Dist. Width 13.8 % (11.5-14.5)
--- NOTE | 2024-12-22 22:33 | ED.GENMED ---
History of Present Illness
General
Chief Complaint: Flank Pain
Source: patient
Exam Limitations: none
Time Seen by Provider: 12/22/24 22:25
Nursing documentation reviewed up to this point in time: agreed with
History of Present Illness
History of Present Illness:
Patient to emergency department with complaint of severe left flank pain. States she has had low back pain for the past 2 weeks, but that pain is not similar to what she is experiencing tonight. She has a history of kidney stones but states she
has not had issues for at least the past 5 years. She denies fever or chills. Reports nausea but no vomiting. To ED accompanied by spouse for evaluation
Past History
Past History
ED Past Medical History: Arrthythmia (Paroxysmal atrial fibrillation), Cancer (Right breast cancer), Hypercholesterolemia, Hypothyroidism, Psychiatric and Other (vertigo, DJD of knees); Negative CAD
ED Past Surgical History: Gynecological (Right mastectomy) and Other (Partial thyroidectomy)
Social History
Tobacco: Non-smoker
Alcohol: None
Drug: None
Personal:
Living: with family
Employment: Retired
Family History
Family History: Other (Noncontributory)
Review of Systems
Review of Systems
Allergies reviewed?: Yes
All Other Systems: ROS reviewed and negative except as documented in HPI and ROS
Constitutional: Reports no symptoms
EENT: Reports no symptoms
Respiratory: Reports no symptoms
Cardiac: Reports no symptoms
ABD/GI: Reports nausea
: Reports flank pain (Left flank pain)
Musculoskeletal: Reports no symptoms
Skin: Reports no symptoms
Neurological: Reports no symptoms
Psychiatric: Reports no symptoms
Phy Exam
General Physical Exam
General Presentation: moderate distress
General age: appears stated age
General Skin: warm and dry
General Habitus: obese
Gastrointestinal Exam
Gastrointestinal Exam: non tender, soft and non distended
Musculoskeletal Exam
Musculoskeletal Exam: full ROM and neuro vasc intact
Skin Exam
Skin Exam: normal color, warm/dry and no rash
Psychiatric Exam
Psychiatric Exam: normal mood/affect
Course
Orders/Labs/Results
Orders:
Orders
12/22/24 21:58
Urinalysis Reflex To Culture Urgent
Date Specimen was Collected: 12/22/24
Time Specimen was Collected: 21:41
Urine Microscopic Reflex Cult Urgent
Urine Culture Urgent
DAVIAN Source: U
Specimen Description:
Date Specimen was Collected: 12/22/24
Time Specimen was Collected: 21:41
12/22/24 22:09
Complete Blood Count/With Diff Urgent
12/22/24 22:32
HYDROmorphone [Dilaudid] 0.5 mg IV NOW STA
Ondansetron Injectable [Zofran] 4 mg IV NOW STA
12/22/24 23:37
Comprehensive Metabolic Panel Urgent
12/23/24
CT Abd/pel Without Iv Or Oral Urgent
Reason For Exam: left flank pain
12/23/24 01:22
HYDROmorphone [Dilaudid] 0.5 mg IV NOW STA
Abnormal Lab Results
12/22/24 12/22/24
21:58 23:37
BUN 25 H mg/dl
(7-17)
Glucose 153 H mg/dl
(70-99)
Ur Occult Blood Reflex 4+ A
(Negative)
Leukocyte Esterase Rfl 2+ A
(Negative)
Urine RBC >100 A /HPF
(0-2)
Urine Bacteria (Reflex) Moderate A
(Negative)
Urine Albumin (Reflex) 2+ A
(Neg - Trace)
12/22/24 22:09
12/22/24 23:37
Vital Signs
Initial and Last Documented VS:
Initial Vital Signs
Temp Pulse Resp BP Pulse Ox
97.8 F 93 26 145/94 96
12/22/24 21:36 12/22/24 21:36 12/22/24 21:36 12/22/24 21:36 12/22/24 21:36
Last Documented Vital Signs
Temp Pulse Resp BP Pulse Ox
97.8 F 65 18 117/56 95
12/22/24 21:36 12/23/24 00:08 12/23/24 00:08 12/23/24 00:08 12/23/24 00:08
*Radiology
Radiology exam reviewed: radiology read reviewed
*Pulse Oximetry
SaO2: 96
Oxygen Mode of Delivery: Room air
Patient hypoxic: no
*Critical Care Note
Total Time (30-74mins, 75-104mins- exclusive of procedures): Not Applicable
Update Note
Update Note:
Patient to the emergency department with complaint of severe left lower back pain radiating at times around to left flank. She states she has been dealing with low back pain for the last few weeks but tonight the pain became intolerable. She does
have a history of kidney stones and was uncertain if this pain was related to her back or to a possible kidney stone. Labs reviewed CBC and CMP without concerning findings. UA with +4 occult blood. She was sent for noncontrast CT of abdomen
pelvis. Results reviewed with her no acute findings were found to explain her pain. There is no evidence of ureteral calculus hydronephrosis or pyelonephritis. Bilateral nonobstructing renal calculi were noted. There is no bowel process of
concern. Clinically she presents as a kidney stone and I spoke with her about the possibility that the stone passed prior to her receiving her CT. She was given IV Dilaudid on arrival to the ED and in good pain control was achieved. She still
notes some mild left lower back discomfort. This discomfort is aggravated with movement and is different from the pain she presented with earlier. She will be discharged home tonight and will follow-up with her urologist and PCP in the a.m. Short
course of pain medication was transmitted to her pharmacy. She was given instructions on signs and symptoms to the return to the emergency department and she is agreeable with this plan.
ED Attending Note
-
Portions of this chart may have been created with voice recognition software.� Occasional wrong word or��sound alike� substitutions may have occurred due to the inherent limitations of voice recognition software.
Discharge Plan
Departure
Patient Disposition: Home (Routine Discharge)
Date of Disposition: 12/23/24
Time of Disposition: 01:23
Patient with high blood pressure during this ER visit?: No
Condition: Good
Covid-19: Not Applicable
Discharge Problem:
Acute flank pain
Instructions: Renal Colic (DC), Flank Pain (DC), Narcotic Pain Medication
Prescriptions:
New
oxycodone 5 mg capsule
5 mg PO Q4H PRN (Reason: Pain) Qty: 20 0RF
No Action
levothyroxine 125 MCG tablet
250 mcg PO PERRY
levothyroxine 125 MCG tablet
125 mcg PO MOTUWETHFRSA
ezetimibe 10 MG tablet
10 mg PO HS
Vitamin D2 1.25 MG Tab
1.25 mg PO SUTH
Eliquis 2.5 mg Tablet
5 mg PO BID Qty: 60 0RF
clotrimazole-betamethasone 1-0.05 % Cream
1 applic topical BID Qty: 15 0RF
metoprolol succinate 25 mg Tablet Extended Release 24 Hr
12.5 mg PO BID Qty: 60 0RF
pravastatin 40 mg Tablet
40 mg PO HS
metoprolol tartrate 25 mg Tablet
25 mg PO BID
Referrals:
Ne Metz MD [Family Provider, Family Practice] - Tomorrow
Activity Restrictions/Additional Instructions:
Return to the emergency department for any changes in/worsening of your symptoms.
Interventions
Interventions:
*Risk Screen - Suicide Last Done: 12/22/24 21:36
*General Assessment Last Done: 12/22/24 21:36
*Neglect/Abuse Screening Last Done: 12/22/24 21:36
*ED- Fall Risk Assessment Last Done: 12/22/24 23:10
*ED COVID-19 Vaccine History Last Done: 12/22/24 23:10
*ED Influenza Vaccine History Last Done: 12/22/24 23:10
WK-Njztcc-Vtiauhtsyc Assessment Last Done: 12/22/24 23:08
ED-Female Genitourinary Assessment Last Done: 12/22/24 23:08
Discharge Date and Time
Print Language: MAORI
[2024-12-22] MEDS: DILAUDID 0.5 MG IV (23:31)
[2024-12-22] MEDS: ZOFRAN 4 MG IV (23:31)
[2024-12-22 23:40] VITALS: BP 148/81; BMI 50.2
[2024-12-23 00:08] VITALS: BP 117/56
[2024-12-23 01:01] LABS: ALT (SGPT) 25 U/L (0-35); AST (SGOT) 22 U/L (14-36); Albumin 4.1 g/dl (3.5-5.0); Alkaline Phosphatase 77 U/L (38-126); Blood Urea Nitrogen 25 mg/dl (7-17); Calcium 9.0 mg/dl (8.4-10.2); Carbon Dioxide 24 mmol/L (22-30); Chloride 107 mmol/L (98-107); Estimated Creatinine Clearance 86 ml/min; Glucose 153 mg/dl (70-99); Potassium 4.1 mmol/L (3.5-5.1); Sodium 140 mmol/L (135-145); Total Protein 6.7 g/dl (6.3-8.2); eGFR > 60.00
[2024-12-23] MEDS: DILAUDID 0.5 MG IV (01:43)
[2024-12-23 02:42] VITALS: BP 147/73
== END 2024-12-23 02:45 | disposition home or self-care (01) ==
LOC: EMR 21:34
PROVIDERS: EMERGENCY PHYSICIAN Emergency Medicine; FAMILY PHYSICIAN Family Medicine
DX: N20.0 Calculus of kidney (principal); R10.A2 Flank pain, left side; M54.50 Low back pain, unspecified; E03.9 Hypothyroidism, unspecified; E78.00 Pure hypercholesterolemia, unspecified; I48.0 Paroxysmal atrial fibrillation; Z85.3 Personal history of malignant neoplasm of breast; Z90.11 Acquired absence of right breast and nipple
CPT/HCPCS: 96374; 96375; 99284; 74176; 80053; 81003; 81015; 85025; 87086

== ENCOUNTER → 2024-12-27 09:06 | Outpatient (REF) | payer MEDICARE, OTHER, SELFPAY ==
--- NOTE | 2024-12-28 09:22 | PN.DIAED04 ---
Education Record
- Education Record
Class Attended: Class 4
DSME Class Series Code: [id number]
Instructor: Registered Nurse (Liliya Costa RN)
Class Curriculum:
Outpatient Diabetes Education Program:
Class 4 (120 minutes)
Develop personal strategies to promote health and behavior change
Incorporate physical activity into lifestyle
Utilize medications safety for maximum therapeutic effectiveness
Understand different medication/insulin mechanism of action
Preparing for travel
Class Length (mins): 120
Post-Class 4 Test Score (%): 93
== END ==
LOC: DES 09:06
PROVIDERS: ATTENDING PHYSICIAN Family Medicine
DX: E11.65 Type 2 diabetes mellitus with hyperglycemia (principal)
CPT/HCPCS: 99078